=== PATIENT | male | born 1955 | race Asian ===

== ENCOUNTER 2016-09-08 16:10 | Inpatient (IN) | payer MEDICARE, OTHER ==
[~2016-09-08] VITALS: Ht 167.6 cm; Wt 63.5 kg
[2016-09-08 17:04] LABS: BASOPHILS % (AUTO) 0.7 % (0.0-2.0); EOSINOPHILS % (AUTO) 0.1 % (0.0-3.0); LYMPHOCYTES % (AUTO) 8.4 % (20.0-45.0); MEAN CORPUSCULAR HEMOGLOBIN 28.1 PG (27.0-31.0); MEAN CORPUSCULAR HGB CONC 34.5 G/DL (32.0-36.0); MEAN CORPUSCULAR VOLUME 82 FL (80-99); MEAN PLATELET VOLUME 7.4 FL (6.5-10.1); MONOCYTES % (AUTO) 8.8 % (1.0-10.0); PLATELET COUNT 164 K/UL (150-450); RED BLOOD COUNT 4.68 M/UL (4.70-6.10); RED CELL DISTRIBUTION WIDTH 16.6 % (11.6-14.8); WHITE BLOOD COUNT 11.9 K/UL (4.8-10.8)
[2016-09-08 17:23] LABS: ACETAMINOPHEN < 10 ug/mL (10-30); ALANINE AMINOTRANSFERASE 41 U/L (3-41); ALBUMIN/GLOBULIN RATIO 1.3 (1.0-2.7); ALCOHOL < 10 mg/dL; ANION GAP 17 (5-15); ASPARTATE AMINO TRANSFERASE 60 U/L (5-40); CALCIUM 8.7 mg/dL (8.6-10.2); CARBON DIOXIDE 25 mEQ/L (20-30); CHLORIDE 96 mEQ/L (98-107); GLOMERULAR FILTRATION RATE > 60 mL/min (>60); HEMOLYSIS 4; POTASSIUM 4.3 mEQ/L (3.4-4.9); SODIUM 138 mEQ/L (135-145)
[2016-09-08 17:34] LABS: THYROID STIMULATING HORMONE 0.546 uIU/mL (0.300-4.500)
[2016-09-08] MEDS ORDERED: NKM (18:33)
--- NOTE | 2016-09-08 18:33 | Emergency Room Report ---
History of Present Illness General Chief Complaint: Generalized Weakness Source: EMS Present Illness HPI 61-year-old male brought to ED for evaluation. Per EMS patient lives at [facility] facility. Principal Law Clerk call 911 because patient is having frequent falls for the last few days. Witnessed fall with head injury. No reported LOC. Patient was taken to another hospital yesterday and was medically cleared and discharged. Patient had additional falls today. Patient has extensive psychiatric history. Patient is not able to give good history. Unsure if he lost consciousness. Denies chest pain or shortness of breath. Denies fevers or chills. Denies drug use. No other aggravating or relieving factors. Denies any other associated symptoms Allergies: Coded Allergies: No Known Allergies (Unverified , 09/08/16) Patient History Past Medical History: HTN, psych hx Pertinent Family History: none Social History: Denies: alcohol use, drug use, smoking Immunizations: UTD Reviewed Nursing Documentation: PMH: Agreed, PSxH: Agreed Nursing Documentation-PMH Past Medical History: No History, Except For Hx Hypertension: Yes History Of Psychiatric Problem: Yes - schizophrenia Review of Systems All Other Systems: negative except mentioned in HPI Physical Exam Vital Signs Date Time Temp Pulse Resp B/P Pulse Ox O2 Delivery O2 Flow Rate FiO2 09/08/16 16:08 99.7 96 18 120/74 97 Room Air Sp02 EP Interpretation: reviewed, normal General Appearance: no apparent distress, alert, GCS 15, non-toxic Head: normocephalic, atraumatic Eyes: bilateral eye PERRL, bilateral eye normal inspection ENT: hearing grossly normal, normal pharynx, no angioedema, normal voice Neck: full range of motion, supple/symm/no masses Respiratory: chest non-tender, lungs clear, normal breath sounds, speaking full sentences Cardiovascular #1: regular rate, rhythm, no edema Cardiovascular #2: 2+ carotid (R), 2+ carotid (L), 2+ radial (R), 2+ radial (L) , 2+ dorsalis pedis (R), 2+ dorsalis pedis (L) Gastrointestinal: normal bowel sounds, non tender, soft, non-distended, no guarding, no rebound Rectal: deferred Genitourinary: normal inspection, no CVA tenderness Musculoskeletal: back normal, gait/station normal, normal range of motion, non- tender Neurologic: alert, sensory intact, speech normal Psychiatric: other - psych Reflexes: 3+ bicep (R), 3+ bicep (L), 3+ tricep (R), 3+ tricep (L), 3+ knee (R) , 3+ knee (L) Skin: normal color, no rash, warm/dry, well hydrated Lymphatic: no adenopathy Medical Decision Making Diagnostic Impression: Primary Impression: Head injury Qualified Codes: S09.90XA - Unspecified injury of head, initial encounter Additional Impressions: Frequent falls Schizophrenia Qualified Codes: F20.9 - Schizophrenia, unspecified ER Course Hospital Course 61-year-old M presents ED s/p head injury. h/o frequent falls. h/o psych Differential diagnoses include: dehydration, CVA/TIA, ETOH Clinical course Patient placed on stretcher. on director software development. After initial history and physical I ordered labs, IVFs, CT Brain labs reviewed- no leukocytosis, hemoglobin/hematocrit ok, electrolytes okay, troponins negative, ETOH < 10 CT brain-unremarkable I discussed case with elementary substitute teacher in [facility] facility. She states that she is unable to care for the patient given that he has frequent falls. Patient will require admission Case discussed with Dr. Gutierrez and he agreed to accept the patient to his service for further care and support I. I feel this is a highly complex case requiring extensive working including EKG/Rhythm strip, Xray/CT/US, Blood/urine lab work, repeat exams while in ED, and administration of strong opiates/narcotics for pain control, admission to hospital or close patient follow up. Diagnosis - head injury, frequent falls, schizophrenia admitted to floor in serious condition Labs Test 09/08/16 16:43 White Blood Count 11.9 K/UL (4.8-10.8) Red Blood Count 4.68 M/UL (4.70-6.10) Hemoglobin 13.2 G/DL (14.2-18.0) Hematocrit 38.1 % (42.0-52.0) Mean Corpuscular Volume 82 FL (80-99) Mean Corpuscular Hemoglobin 28.1 PG (27.0-31.0) Mean Corpuscular Hemoglobin Concent 34.5 G/DL (32.0-36.0) Red Cell Distribution Width 16.6 % (11.6-14.8) Platelet Count 164 K/UL (150-450) Mean Platelet Volume 7.4 FL (6.5-10.1) Neutrophils (%) (Auto) 82.0 % (45.0-75.0) Lymphocytes (%) (Auto) 8.4 % (20.0-45.0) Monocytes (%) (Auto) 8.8 % (1.0-10.0) Eosinophils (%) (Auto) 0.1 % (0.0-3.0) Basophils (%) (Auto) 0.7 % (0.0-2.0) Sodium Level 138 mEQ/L (135-145) Potassium Level 4.3 mEQ/L (3.4-4.9) Chloride Level 96 mEQ/L (98-107) Carbon Dioxide Level 25 mEQ/L (20-30) Anion Gap 17 (5-15) Blood Urea Nitrogen 22 mg/dL (7-23) Creatinine 1.0 mg/dL (0.7-1.2) Estimat Glomerular Filtration Rate > 60 mL/min (>60) Glucose Level 136 mg/dL (74-106) Calcium Level 8.7 mg/dL (8.6-10.2) Total Bilirubin 0.9 mg/dL (0.0-1.2) Aspartate Amino Transf (AST/SGOT) 60 U/L (5-40) Alanine Aminotransferase (ALT/SGPT) 41 U/L (3-41) Alkaline Phosphatase 96 U/L (40-129) Total Protein 7.0 g/dL (6.6-8.7) Albumin 4.0 g/dL (3.5-5.2) Globulin 3.0 g/dL Albumin/Globulin Ratio 1.3 (1.0-2.7) Thyroid Stimulating Hormone (TSH) 0.546 uIU/mL (0.300-4.500) Salicylates Level < 1 mg/dL (10-30) Acetaminophen Level < 10 ug/mL (10-30) Serum Alcohol < 10 mg/dL CT/MRI/US Diagnostic Results CT/MRI/US Diagnostic Results : Imaging Test Ordered: CT Head Impression no acute process Last Vital Signs Date Time Temp Pulse Resp B/P Pulse Ox O2 Delivery O2 Flow Rate FiO2 09/08/16 16:08 99.7 96 18 120/74 97 Room Air Status: unchanged Disposition: HOME, SELF-CARE Condition: Stable Patient Instructions: Head Injury, Adult, [id number] VIRIDIANA SANCHEZ M.D. Sep 08, 2016 18:33
[2016-09-08] MEDS ORDERED: Morphine Sulfate 2mg/ml Inj IVP PRN (18:45)
[2016-09-08] MEDS ORDERED: LORazepam Inj 2mg/ml 1ml IV PRN (18:45)
[2016-09-08] MEDS ORDERED: Mylanta II UD 30ml ORAL PRN (18:45)
[2016-09-08 18:51] VITALS: BP 120/86
[2016-09-08 20:51] VITALS: BP 123/81
[2016-09-08] MEDS ORDERED: Zolpidem 5mg tab ORAL PRN (21:00)
[2016-09-08] MEDS ORDERED: Miralax 17gm pkt ORAL PRN (21:00)
[2016-09-08 22:11] VITALS: BP 143/79
[2016-09-09 04:23] VITALS: BP 137/86
[2016-09-09 07:15] LABS: ALANINE AMINOTRANSFERASE 36 U/L (3-41); ALBUMIN/GLOBULIN RATIO 1.1 (1.0-2.7); ANION GAP 14 (5-15); ASPARTATE AMINO TRANSFERASE 48 U/L (5-40); CALCIUM 8.6 mg/dL (8.6-10.2); CARBON DIOXIDE 24 mEQ/L (20-30); CHLORIDE 103 mEQ/L (98-107); CHOLESTEROL 149 mg/dL (< 200); CHOLESTEROL/HDL RATIO 3.5 (3.3-4.4); CREATININE 0.9 mg/dL (0.7-1.2); GLOMERULAR FILTRATION RATE > 60 mL/min (>60); HEMOLYSIS 1; LDL CHOLESTEROL (CALC.) 90 mg/dL (60-99); POTASSIUM 3.8 mEQ/L (3.4-4.9); SODIUM 141 mEQ/L (135-145); TOTAL PROTEIN 6.7 g/dL (6.6-8.7)
[2016-09-09 07:20] LABS: BASOPHILS % (AUTO) 0.7 % (0.0-2.0); EOSINOPHILS % (AUTO) 0.3 % (0.0-3.0); LYMPHOCYTES % (AUTO) 9.2 % (20.0-45.0); MEAN CORPUSCULAR HEMOGLOBIN 25.4 PG (27.0-31.0); MEAN CORPUSCULAR HGB CONC 31.5 G/DL (32.0-36.0); MEAN CORPUSCULAR VOLUME 81 FL (80-99); MEAN PLATELET VOLUME 7.2 FL (6.5-10.1); MONOCYTES % (AUTO) 8.5 % (1.0-10.0); NEUTROPHILS % (AUTO) 81.3 % (45.0-75.0); PLATELET COUNT 168 K/UL (150-450); RED BLOOD COUNT 5.06 M/UL (4.70-6.10); RED CELL DISTRIBUTION WIDTH 17.2 % (11.6-14.8); WHITE BLOOD COUNT 11.1 K/UL (4.8-10.8)
[2016-09-09 07:28] LABS: THYROID STIMULATING HORMONE 0.335 uIU/mL (0.300-4.500)
[2016-09-09 08:22] VITALS: BP 131/83
[2016-09-09 11:46] VITALS: BP 138/84
--- NOTE | 2016-09-09 14:22 | Diagnostic Imaging Report ---
Indications: Head trauma, status post fall Technique: Spiral acquisitions obtained through the brain. Angled axial and coronal 5 x 5 mm slices were reconstructed. Total dose length product 1460 mGycm. CTDI vol(s) 70 mGy. Dose reduction achieved using automated exposure control Comparison: None Findings: No significant extra cranial soft tissue trauma. No evidence of calvarial injury. No acute intracranial bleed or edema, mass effect, or midline shift. Old lacunar infarcts are seen in the bilateral frontal deep white matter. There is minimal age-related enlargement of the ventricles and extra-axial CSF spaces. Normal roblero-white differentiation. There is include disease involving the maxillary and ethmoid sinuses, and evidence of chronic periosteal thickening of the maxillary sinuses. Impression: Negative for acute intracranial bleed or mass effect Old bilateral frontal deep white matter lacunar infarcts Minimal age-related volume loss Sinus disease This agrees with the preliminary interpretation provided overnight by Dr. Mcneil The CT scanner at [facility] is accredited by the [employer] and the scans are performed using protocols designed to limit radiation exposure to as low as reasonably achievable to attain images of sufficient resolution adequate for diagnostic evaluation.
[2016-09-09] MEDS ORDERED: Promethazine/Codeine 5ml UD ORAL PRN (15:45)
--- NOTE | 2016-09-09 15:58 | Consultation ---
History of Present Illness General Date patient seen: Sep 09, 2016 Chief Complaint: Generalized Weakness Referring physician: dr Gutierrez Reason for Consultation: cough Present Illness HPI 61-year-old male with hx of schizophrenia, CAD, brought to ED for evaluation of frequent falls for the last few days. Patient is not able to give good history. He is admitted last night, sleeping most of the time and just started to have cough and low grade fever. Allergies: Coded Allergies: No Known Allergies (Unverified , 09/08/16) Medication History Scheduled No Known Medications* (NKM - No Known Medications*), 0 ., (Reported) Patient History Healthcare decision maker Resuscitation status Full Code Advanced Directive on File Past Medical/Surgical History Past Medical/Surgical History: (1) Schizophrenia Review of Systems All Other Systems: negative except mentioned in HPI Physical Exam General Appearance: WD/WN, no apparent distress Lines, tubes and drains: peripheral HEENT: normocephalic, atraumatic Neck: non-tender, normal alignment Respiratory/Chest: chest wall non-tender, lungs clear Cardiovascular/Chest: normal peripheral pulses Abdomen: normal bowel sounds, non tender Genitourinary/Rectal: normal genital exam Extremities: normal range of motion Last 24 Hour Vital Signs Date Time Temp Pulse Resp B/P Pulse Ox O2 Delivery O2 Flow Rate FiO2 09/09/16 15:00 100.9 09/09/16 11:46 99.9 110 20 138/84 95 Room Air 110 09/09/16 08:22 97.9 85 19 131/83 95 85 09/09/16 04:23 97.5 103 20 137/86 90 Room Air 09/08/16 22:11 98.2 92 20 143/79 93 Room Air 09/08/16 21:12 98.3 91 22 123/81 97 Room Air 09/08/16 20:51 98.3 91 22 123/81 97 Room Air 09/08/16 18:51 98.3 94 23 120/86 97 Room Air 09/08/16 16:08 99.7 96 18 120/74 97 Room Air Intake and Output 09/08/16 09/09/16 19:00 07:00 Intake Total 0 ml 120 ml Output Total 800 ml Balance 0 ml -680 ml Intake Oral 0 ml 120 ml Output Urine Total 800 ml # Voids 4 Laboratory Tests Test 09/08/16 16:43 09/09/16 04:45 White Blood Count 11.9 K/UL (4.8-10.8) H 11.1 K/UL (4.8-10.8) H Red Blood Count 4.68 M/UL (4.70-6.10) L 5.06 M/UL (4.70-6.10) Hemoglobin 13.2 G/DL (14.2-18.0) L 12.9 G/DL (14.2-18.0) L Hematocrit 38.1 % (42.0-52.0) L 40.9 % (42.0-52.0) L Mean Corpuscular Volume 82 FL (80-99) 81 FL (80-99) Mean Corpuscular Hemoglobin 28.1 PG (27.0-31.0) 25.4 PG (27.0-31.0) L Mean Corpuscular Hemoglobin Concent 34.5 G/DL (32.0-36.0) 31.5 G/DL (32.0-36.0) L Red Cell Distribution Width 16.6 % (11.6-14.8) H 17.2 % (11.6-14.8) H Platelet Count 164 K/UL (150-450) 168 K/UL (150-450) Mean Platelet Volume 7.4 FL (6.5-10.1) 7.2 FL (6.5-10.1) Neutrophils (%) (Auto) 82.0 % (45.0-75.0) H 81.3 % (45.0-75.0) H Lymphocytes (%) (Auto) 8.4 % (20.0-45.0) L 9.2 % (20.0-45.0) L Monocytes (%) (Auto) 8.8 % (1.0-10.0) 8.5 % (1.0-10.0) Eosinophils (%) (Auto) 0.1 % (0.0-3.0) 0.3 % (0.0-3.0) Basophils (%) (Auto) 0.7 % (0.0-2.0) 0.7 % (0.0-2.0) Sodium Level 138 mEQ/L (135-145) 141 mEQ/L (135-145) Potassium Level 4.3 mEQ/L (3.4-4.9) 3.8 mEQ/L (3.4-4.9) Chloride Level 96 mEQ/L (98-107) L 103 mEQ/L (98-107) Carbon Dioxide Level 25 mEQ/L (20-30) 24 mEQ/L (20-30) Anion Gap 17 (5-15) H 14 (5-15) Blood Urea Nitrogen 22 mg/dL (7-23) 16 mg/dL (7-23) Creatinine 1.0 mg/dL (0.7-1.2) 0.9 mg/dL (0.7-1.2) Estimat Glomerular Filtration Rate > 60 mL/min (>60) > 60 mL/min (>60) Glucose Level 136 mg/dL (74-106) H 122 mg/dL (74-106) H Calcium Level 8.7 mg/dL (8.6-10.2) 8.6 mg/dL (8.6-10.2) Total Bilirubin 0.9 mg/dL (0.0-1.2) 0.9 mg/dL (0.0-1.2) Aspartate Amino Transf (AST/SGOT) 60 U/L (5-40) H 48 U/L (5-40) H Alanine Aminotransferase (ALT/SGPT) 41 U/L (3-41) 36 U/L (3-41) Alkaline Phosphatase 96 U/L (40-129) 91 U/L (40-129) Total Protein 7.0 g/dL (6.6-8.7) 6.7 g/dL (6.6-8.7) Albumin 4.0 g/dL (3.5-5.2) 3.6 g/dL (3.5-5.2) Globulin 3.0 g/dL 3.1 g/dL Albumin/Globulin Ratio 1.3 (1.0-2.7) 1.1 (1.0-2.7) Thyroid Stimulating Hormone (TSH) 0.546 uIU/mL (0.300-4.500) 0.335 uIU/mL (0.300-4.500) Salicylates Level < 1 mg/dL (10-30) L Acetaminophen Level < 10 ug/mL (10-30) L Serum Alcohol < 10 mg/dL Triglycerides Level 86 mg/dL (< 150) Cholesterol Level 149 mg/dL (< 200) LDL Cholesterol 90 mg/dL (60-99) HDL Cholesterol 42 mg/dL (> 60) Cholesterol/HDL Ratio 3.5 (3.3-4.4) Height (Feet): 5 Height (Inches): 6.00 Weight (Pounds): 140 Medications Current Medications Medications (Trade) Dose Ordered Sig/Madhuri Route PRN Reason Start Time Stop Time Status Last Admin Dose Admin Acetaminophen (Tylenol) 650 mg Q4H PRN ORAL T>100.5 09/08/16 18:45 10/08/16 18:44 Al Hydroxide/Mg Hydroxide (Mylanta II) 30 ml Q6H PRN ORAL dyspepsia 09/08/16 18:45 10/08/16 18:44 Dextrose (Dextrose 50%) STAT PRN IV Hypoglycemia 09/08/16 18:45 10/08/16 18:44 Levofloxacin (Levaquin) 100 ml @ 100 mls/hr Q24H IVPB 09/09/16 17:00 09/16/16 16:59 Lorazepam (Ativan 2mg/ml 1ml) 0.5 mg Q4H PRN IV For Anxiety 09/08/16 18:45 09/15/16 18:44 Morphine Sulfate (Morphine Sulfate) 1 mg Q4H PRN IVP PAIN 4-10 09/08/16 18:45 09/15/16 18:44 Ondansetron HCl (Zofran) 4 mg Q6H PRN IVP Nausea & Vomiting 09/08/16 18:45 10/08/16 18:44 Polyethylene Glycol (Miralax) 17 gm HSPRN PRN ORAL Constipation 09/08/16 21:00 10/08/16 20:59 Promethazine HCl/ Codeine 5 ml 5 ml Q4H PRN ORAL For Cough 09/09/16 15:45 10/09/16 15:44 Zolpidem Tartrate (Ambien) 5 mg HSPRN PRN ORAL Insomnia 09/08/16 21:00 10/08/16 20:59 Assessment/Plan Problem List: (1) Purulent bronchitis ICD Codes: J41.1 - Mucopurulent chronic bronchitis SNOMED: 11709553 (2) Fever ICD Codes: R50.9 - Fever, unspecified SNOMED: 061680439 (3) Acute encephalopathy ICD Codes: G93.40 - Encephalopathy, unspecified SNOMED: 4150515 (4) Schizoaffective disorder ICD Codes: F25.9 - Schizoaffective disorder, unspecified SNOMED: 66683295 Assessment/Plan check sputum IV antibiotics psych evaluation dvt prophylaxis CROW NOLAN Sep 09, 2016 15:58
[2016-09-09 16:00] VITALS: BP 137/76
--- NOTE | 2016-09-09 17:18 | Diagnostic Imaging Report ---
Indication: COUGH Technique: One view of the chest Comparison: none Findings: There is bilateral perihilar interstitial prominence and bronchial wall thickening, likely on the basis of chronic bronchitis changes. No focal airspace consolidation. No effusions. Normal heart size. Tortuous calcified aorta. Gas-filled borderline distended colon is noted Impression: Probable bronchitis/COPD changes No definite acute process Prominent gas-filled colon-correlate with clinical findings
--- NOTE | 2016-09-09 17:48 | History & Physical ---
History and Physical History & Physicial Dictated for Internal Med-Dr Gutierrez no. [id number]. ANNE JENNINGS Sep 09, 2016 17:47
[2016-09-09 20:00] VITALS: BP 102/61
[2016-09-09] MEDS ORDERED: Tubing IV Secondary IV ONE (20:31)
[2016-09-09] MEDS ORDERED: NS 275ml ONE (20:31)
[2016-09-09] MEDS ORDERED: Tubing Blood Filter IV ONE (20:31)
[2016-09-09] MEDS ORDERED: DuoNeb 0.5-3(2.5)mg/3ml neb HHN PRN (22:00)
--- NOTE | 2016-09-09 22:08 | Consultation ---
DATE OF CONSULTATION: 09/09/2016 PSYCHIATRIC CONSULTATION: CONSULTING PHYSICIAN: Kae Mckeon M.D. ATTENDING PHYSICIAN: Mal Gutierrez M.D. REFERRING PHYSICIAN: Mal Gutierrez M.D. HISTORY OF PRESENT ILLNESS: This is a 61-year-old male with history of schizophrenia and CAD, who was admitted to the hospital due to frequent falls. During the evaluation, the patient denied any delusions, however he does endorse auditory hallucinations. He denies using drugs or alcohol, however he appears to be an alcoholic. His abdomen is dilated and his face is typical for an alcoholic individual. I have asked him several times with a Sami speaking nurse, whether he has been using drugs, he denied. His AST is 60 higher than which was 41. During the evaluation, he did not appear to have any withdrawal symptoms from alcohol and he did not appear to be anxious. PAST PSYCHIATRIC HISTORY: Diagnosed with schizoaffective disorder and has been treated with antipsychotics in the past. PAST MEDICAL HISTORY: Significant for bronchitis, head injury, and frequent falls. ALLERGIES: There is no known drug allergies. SUBSTANCE ABUSE HISTORY: He denies any illicit drug use or alcohol. Again, it seems like that he is a chronic alcoholic. PHYSICAL EXAMINATION: MENTAL STATUS EXAMINATION: The patient is alert and oriented x3. Mood is neutral. Affect is constricted. Congruent mood. Thought process is concrete. Thought content, no suicidal or homicidal ideations. Positive for auditory hallucination. Cognition is slightly impaired. Insight and judgment are impaired. ASSESSMENT: AXIS I Schizophrenia versus schizoaffective disorder, rule out alcohol dependence. AXIS II Deferred. AXIS III As above. AXIS IV Moderate. AXIS V GAF is 50. PLAN: 1. The patient is already on Ativan, which could be used for alcohol withdrawal, if the patient presented with any. 2. We will start the patient with folic acid and thiamine, in case, if he has been drinking. 3. We will start the patient also on risperidone 2 mg at bedtime. 4. We will continue to follow and readjust the medications. Kae Mckeon M.D. DR: Lisy JOB#: [id number] CC:
--- NOTE | 2016-09-09 22:48 | History and Physical Report ---
DATE OF ADMISSION: 09/09/2016 CHIEF COMPLAINT: The patient is a 61-year-old male, who presents with a chief complaint of head injury. HISTORY OF PRESENT ILLNESS: The patient is a resident of [facility]. Much of the history and physical is obtained from the patient's chart. The patient will not wake up for this interviewer. The patient apparently lives at a [facility]. According to the staff at [facility], the patient has had frequent falls recently. The patient had a witnessed fall, where he hit his head. The patient was transported to [facility]. An initial CT scan of the brain was within normal limits. The patient was admitted for closed head injury to rule out acute intracranial bleed. PAST MEDICAL HISTORY: Significant for: 1. Hypertension. 2. Schizophrenia. PAST SURGICAL HISTORY: The patient denies. CURRENT MEDICATIONS: Unable to assess secondary to the patient's mental status. None reported. ALLERGIES: No known drug allergies. SOCIAL HISTORY: The patient lives at a [facility]. The patient denies tobacco or alcohol use. REVIEW OF SYSTEMS: Unable to assess secondary to the patient's mental status. PHYSICAL EXAMINATION: VITAL SIGNS: Temperature is 97.5 degrees, respirations 20, pulse 103, and blood pressure 137/86. GENERAL: The patient is a thin appearing, male, in no apparent distress. HEENT: Eyes, pupils are equal and responsive to light and accommodation. Extraocular movements are intact. NECK: Supple. No lymphadenopathy. CHEST: Lungs are clear to auscultation bilaterally without wheezes or rales. CARDIOVASCULAR: Regular rate. S1 and S2. No murmurs, rubs, or gallops. ABDOMEN: Soft, nontender, and nondistended. Positive bowel sounds. No evidence of hepatosplenomegaly. Currently, no rebound or guarding. EXTREMITIES: Negative for clubbing, cyanosis, or edema. RECTAL: Refused. GENITALIA: Refused. NEUROLOGIC: Cranial nerves II through XII are grossly intact without focal deficits. Motor strength is 5/5 bilaterally. Deep tendon reflexes are 2+ plantar. LABORATORY STUDIES: WBC is 11.9, hemoglobin 13.2, hematocrit 38.1, and platelets 164,000. Sodium is 138, potassium 4.3, chloride 96, CO2 25, BUN 22, creatinine 1.0, and glucose 136. AST is slightly elevated at 60. Urine toxicology was reported as negative. DIAGNOSTIC DATA: A chest x-ray revealed interstitial prominence and bronchial wall thickening consistent with bronchitis and/or COPD changes. A CT scan of the brain failed to demonstrate acute intracranial bleed or mass effect. ASSESSMENT: This is a 61-year-old male: 1. Altered mental status. 2. Frequent falls. 3. Closed head injury. 4. Bronchitis. 5. Chronic obstructive pulmonary disease. 6. History of hypertension. 7. Schizophrenia. TREATMENT: 1. Closed head injury/altered mental status. A Neurology consultation with be obtained with Dr. Eddy. Initial CAT scan was within normal limits. We will follow recommendation of Dr. Medina. 2. Frequent falls. 3. Bronchitis/chronic obstructive pulmonary disease. A Pulmonary consultation has been obtained with Dr. Taran Fermin. The patient is currently on intravenous Levaquin. We will follow recommendations of Pulmonary. 4. Hypertension. The patient is currently normotensive. 5. Schizophrenic. Psychiatric consultation will be obtained with Dr. Mckoen. We will follow recommendation of Dr. Mckeon. Kings Mcclelland M.D. DR: Jese JOB#: [id number] CC:
[2016-09-10 00:07] VITALS: BP 121/70
[2016-09-10 04:23] VITALS: BP 132/91
[2016-09-10 06:35] LABS: BASOPHILS % (AUTO) 0.4 % (0.0-2.0); EOSINOPHILS % (AUTO) 0.7 % (0.0-3.0); LYMPHOCYTES % (AUTO) 10.3 % (20.0-45.0); MEAN CORPUSCULAR HEMOGLOBIN 25.2 PG (27.0-31.0); MEAN CORPUSCULAR HGB CONC 31.5 G/DL (32.0-36.0); MEAN CORPUSCULAR VOLUME 80 FL (80-99); MEAN PLATELET VOLUME 8.1 FL (6.5-10.1); MONOCYTES % (AUTO) 7.9 % (1.0-10.0); NEUTROPHILS % (AUTO) 80.7 % (45.0-75.0); PLATELET COUNT 173 K/UL (150-450); RED BLOOD COUNT 4.97 M/UL (4.70-6.10); RED CELL DISTRIBUTION WIDTH 16.4 % (11.6-14.8); WHITE BLOOD COUNT 11.1 K/UL (4.8-10.8)
[2016-09-10 06:42] LABS: ANION GAP 9 (5-15); CALCIUM 8.2 mg/dL (8.6-10.2); CARBON DIOXIDE 27 mEQ/L (20-30); CHLORIDE 101 mEQ/L (98-107); CREATININE 0.8 mg/dL (0.7-1.2); GLOMERULAR FILTRATION RATE > 60 mL/min (>60); HEMOLYSIS 21; POTASSIUM 3.4 mEQ/L (3.4-4.9); SODIUM 137 mEQ/L (135-145)
[2016-09-10 08:04] VITALS: BP 117/66
[2016-09-10] MEDS: Thiamine 100mg tab ORAL SCH (08:18)
--- NOTE | 2016-09-10 08:37 | Pulmonology Progress Note ---
Assessment/Plan Assessment/Plan ASSESSMENT acute encephalopathy on chronic psychiatric disorder recurrent falls closed head injury purulent bronchitis COPD active smoker L hip pain hyperglycemia hx of CVA hx of HTN schizophrenia vs schizoaffective disorder PLAN OF CARE MS floor CT head negative for acute intracranial pathology but c/w old lacunar infarcts lipid panel WNL add ASA tox screen negative get UA O2 HHN prn empiric abx sputum cx antitussive prn CXR c/w COPD/bronchitis add Nicotine patch, investment counselor on smoking cessation swallow eval Venous Duplex BLE negative DVT prophylaxis X ray L hip pain management noted hyperglycemia, no known hx of DM, check HgA1c in am psych eval appreciated, psych meds optimized as per psychiatrist case discussed and evaluated by supervising physician Subjective Allergies: Coded Allergies: No Known Allergies (Unverified , 09/08/16) Subjective still with mild leukocytosis, afebrile pulse oximetry stable on RA seen and evaluated by psych, c/o pain L hip after fall but able to ambulate with assistance to the bathroom denies dizziness, headache, change in vision Objective Last 24 Hour Vital Signs Date Time Temp Pulse Resp B/P Pulse Ox O2 Delivery O2 Flow Rate FiO2 09/10/16 08:04 98.3 99 21 117/66 95 Room Air 99 09/10/16 07:26 Room Air 09/10/16 07:26 Room Air 09/10/16 04:23 98.2 97 20 132/91 99 Room Air 09/10/16 03:30 Room Air 09/10/16 03:30 Room Air 09/10/16 00:07 97.0 102 20 121/70 95 Room Air 09/09/16 23:35 83 18 96 Room Air 09/09/16 23:35 83 18 95 Room Air 09/09/16 20:04 Room Air 09/09/16 20:04 Room Air 09/09/16 20:00 98.0 97 20 102/61 98 Room Air 09/09/16 16:52 99.0 09/09/16 16:00 99.5 101 19 137/76 93 09/09/16 15:00 100.9 09/09/16 11:46 99.9 110 20 138/84 95 Room Air 110 Intake and Output 09/09/16 09/10/16 19:00 07:00 Intake Total 460 ml Output Total 200 ml Balance 260 ml Intake Oral 360 ml IV Total 100 ml Output Urine Total 200 ml # Voids 2 2 General Appearance: no acute distress, other - Awake, alert, responsive, in NAD HEENT: normocephalic, atraumatic, anicteric, mucous membranes moist, other - forehead dry scab, no hematoma, no edema Respiratory/Chest: lungs clear - with moderate air entry , no respiratory distress, no accessory muscle use Cardiovascular: normal peripheral pulses, normal rate, regular rhythm, no JVD Abdomen: normal bowel sounds, soft, non tender, non distended Extremities: no cyanosis, no clubbing, no edema, pedal pulses normal, other - Left hip with bruise Neurologic/Psychiatric: abnormal gait, alert, responsive Musculoskeletal: normal muscle bulk Laboratory Tests 09/10/16 05:25: White Blood Count 11.1H, Red Blood Count 4.97, Hemoglobin 12.5L, Hematocrit 39.7L, Mean Corpuscular Volume 80, Mean Corpuscular Hemoglobin 25.2L, Mean Corpuscular Hemoglobin Concent 31.5L, Red Cell Distribution Width 16.4H, Platelet Count 173, Mean Platelet Volume 8.1, Neutrophils (%) (Auto) 80.7H, Lymphocytes (%) (Auto) 10.3L, Monocytes (%) (Auto) 7.9, Eosinophils (%) (Auto) 0.7, Basophils (%) (Auto) 0.4, Sodium Level 137, Potassium Level 3.4, Chloride Level 101, Carbon Dioxide Level 27, Anion Gap 9, Blood Urea Nitrogen 14, Creatinine 0.8, Estimat Glomerular Filtration Rate > 60, Glucose Level 236#H, Calcium Level 8.2L Current Medications Medications (Trade) Dose Ordered Sig/Madhuri Route PRN Reason Start Time Stop Time Status Last Admin Dose Admin Acetaminophen (Tylenol) 650 mg Q4H PRN ORAL T>100.5 09/08/16 18:45 10/08/16 18:44 09/09/16 15:53 Al Hydroxide/Mg Hydroxide (Mylanta II) 30 ml Q6H PRN ORAL dyspepsia 09/08/16 18:45 10/08/16 18:44 Albuterol/ Ipratropium (DuoNeb 0.5-3(2.5)mg/3ml) 3 ml Q4H PRN HHN Shortness of Breath 09/09/16 22:00 09/14/16 21:59 Dextrose (Dextrose 50%) STAT PRN IV Hypoglycemia 09/08/16 18:45 10/08/16 18:44 Folic Acid (Folate) 1 mg DAILY ORAL 09/10/16 09:00 10/10/16 08:59 09/10/16 08:18 Levofloxacin (Levaquin) 100 ml @ 100 mls/hr Q24H IVPB 09/09/16 17:00 09/16/16 16:59 09/09/16 17:24 Lorazepam (Ativan 2mg/ml 1ml) 0.5 mg Q4H PRN IV For Anxiety 09/08/16 18:45 09/15/16 18:44 Morphine Sulfate (Morphine Sulfate) 1 mg Q4H PRN IVP PAIN 4-09/08/16 18:45 09/15/16 18:44 Ondansetron HCl (Zofran) 4 mg Q6H PRN IVP Nausea & Vomiting 09/08/16 18:45 10/08/16 18:44 Polyethylene Glycol (Miralax) 17 gm HSPRN PRN ORAL Constipation 09/08/16 21:00 10/08/16 20:59 Promethazine HCl/ Codeine 5 ml 5 ml Q4H PRN ORAL For Cough 09/09/16 15:45 10/09/16 15:44 Risperidone (RisperDAL) 2 mg BEDTIME ORAL 09/09/16 21:00 10/09/16 20:59 09/09/16 21:02 Thiamine HCl (Vitamin B1) 100 mg DAILY ORAL 09/10/16 09:00 10/10/16 08:59 09/10/16 08:18 Zolpidem Tartrate (Ambien) 5 mg HSPRN PRN ORAL Insomnia 09/08/16 21:00 10/08/16 20:59 Otto PleitezHawa logan NP Sep 10, 2016 08:37
[2016-09-10] MEDS ORDERED: Tubing IV Secondary IV ONE (09:58)
[2016-09-10 10:35] LABS: APPEARANCE,URINE CLEAR; KETONES,URINE 1+ (NEGATIVE); LEUKOCYTE ESTERASE ,URINE NEGATIVE (NEGATIVE); NITRITE,URINE NEGATIVE (NEGATIVE); PH,URINE 6 (4.5-8.0); PROTEIN,URINE 1+ (NEGATIVE); UROBILINOGEN,URINE NORMAL MG/DL (0.0-1.0)
[2016-09-10 11:02] LABS: BACTERIA,URINE FEW /HPF; MUCUS,URINE OCCASIONAL /LPF (NONE/OCC); RBC,URINE 0-2 /HPF (0 - 0); SQUAMOUS EPITHELIAL CELL,UR OCCASIONAL /LPF (NONE/OCC); WBC,URINE 0-2 /HPF (0 - 0)
[2016-09-10 11:32] VITALS: BP 138/85
[2016-09-10] MEDS: Aspirin EC 81mg tab ORAL SCH (12:20)
--- NOTE | 2016-09-10 13:40 | Diagnostic Imaging Report ---
Indications: Abdominal pain Technique: Portable supine AP abdomen Findings: Comparison: None Mild diffuse gaseous distention of small bowel. Mild/moderate gaseous and fecal distention of colon to rectum. Scattered arterial mural calcifications. Small osteophytes lumbar spine. IMPRESSION: Findings compatible with constipation, diffuse ileus Aortosclerosis Mild degenerative spondylosis
--- NOTE | 2016-09-10 14:17 | Diagnostic Imaging Report ---
Indications: Fall, left arm injury and pain Technique: 2 views left arm. Findings: Comparison: None No fracture, dislocation, joint space widening , surrounding soft tissue swelling/foreign body/gas, or other acute changes are identified. IMPRESSION: No evidence of acute injury to left arm.
[2016-09-10 16:03] VITALS: BP 133/77
--- NOTE | 2016-09-10 18:12 | Internal Med Progress Note ---
Subjective Date of Service: Sep 10, 2016 Physician Name JenningsAnne Attending Physician Mal Gutierrez MD Current Medications Medications (Trade) Dose Ordered Sig/Madhuri Route PRN Reason Start Time Stop Time Status Last Admin Dose Admin Acetaminophen (Tylenol) 650 mg Q4H PRN ORAL T>100.5 09/08/16 18:45 10/08/16 18:44 09/09/16 15:53 Al Hydroxide/Mg Hydroxide (Mylanta II) 30 ml Q6H PRN ORAL dyspepsia 09/08/16 18:45 10/08/16 18:44 Albuterol/ Ipratropium (DuoNeb 0.5-3(2.5)mg/3ml) 3 ml Q4H PRN HHN Shortness of Breath 09/09/16 22:00 09/14/16 21:59 Aspirin (Ecotrin) 81 mg DAILY ORAL 09/10/16 12:00 10/10/16 11:59 09/10/16 12:20 Dextrose (Dextrose 50%) STAT PRN IV Hypoglycemia 09/08/16 18:45 10/08/16 18:44 Folic Acid (Folate) 1 mg DAILY ORAL 09/10/16 09:00 10/10/16 08:59 09/10/16 08:18 Levofloxacin (Levaquin) 100 ml @ 100 mls/hr Q24H IVPB 09/09/16 17:00 09/16/16 16:59 09/10/16 17:55 Lorazepam (Ativan 2mg/ml 1ml) 0.5 mg Q4H PRN IV For Anxiety 09/08/16 18:45 09/15/16 18:44 Morphine Sulfate (Morphine Sulfate) 1 mg Q4H PRN IVP PAIN 4-10 09/08/16 18:45 09/15/16 18:44 Nicotine (Nicoderm) 1 patch DAILY TDERMAL 09/10/16 12:00 10/10/16 11:59 09/10/16 12:20 Ondansetron HCl (Zofran) 4 mg Q6H PRN IVP Nausea & Vomiting 09/08/16 18:45 10/08/16 18:44 Polyethylene Glycol (Miralax) 17 gm HSPRN PRN ORAL Constipation 09/08/16 21:00 10/08/16 20:59 Promethazine HCl/ Codeine 5 ml 5 ml Q4H PRN ORAL For Cough 09/09/16 15:45 10/09/16 15:44 Risperidone (RisperDAL) 2 mg BEDTIME ORAL 09/09/16 21:00 10/09/16 20:59 09/09/16 21:02 Thiamine HCl (Vitamin B1) 100 mg DAILY ORAL 09/10/16 09:00 10/10/16 08:59 09/10/16 08:18 Zolpidem Tartrate (Ambien) 5 mg HSPRN PRN ORAL Insomnia 09/08/16 21:00 10/08/16 20:59 Allergies: Coded Allergies: No Known Allergies (Unverified , 09/08/16) ROS Limited/Unobtainable: Yes Subjective 61 YO M admitted with fall injury. Now closed head injury. Cover for Int [place]- Dr Gutierrez. Objective Last Vital Signs Date Time Temp Pulse Resp B/P Pulse Ox O2 Delivery O2 Flow Rate FiO2 09/10/16 16:03 97.4 96 20 133/77 96 Room Air 96 Laboratory Tests Test 09/10/16 05:25 09/10/16 10:15 White Blood Count 11.1 K/UL (4.8-10.8) H Red Blood Count 4.97 M/UL (4.70-6.10) Hemoglobin 12.5 G/DL (14.2-18.0) L Hematocrit 39.7 % (42.0-52.0) L Mean Corpuscular Volume 80 FL (80-99) Mean Corpuscular Hemoglobin 25.2 PG (27.0-31.0) L Mean Corpuscular Hemoglobin Concent 31.5 G/DL (32.0-36.0) L Red Cell Distribution Width 16.4 % (11.6-14.8) H Platelet Count 173 K/UL (150-450) Mean Platelet Volume 8.1 FL (6.5-10.1) Neutrophils (%) (Auto) 80.7 % (45.0-75.0) H Lymphocytes (%) (Auto) 10.3 % (20.0-45.0) L Monocytes (%) (Auto) 7.9 % (1.0-10.0) Eosinophils (%) (Auto) 0.7 % (0.0-3.0) Basophils (%) (Auto) 0.4 % (0.0-2.0) Sodium Level 137 mEQ/L (135-145) Potassium Level 3.4 mEQ/L (3.4-4.9) Chloride Level 101 mEQ/L (98-107) Carbon Dioxide Level 27 mEQ/L (20-30) Anion Gap 9 (5-15) Blood Urea Nitrogen 14 mg/dL (7-23) Creatinine 0.8 mg/dL (0.7-1.2) Estimat Glomerular Filtration Rate > 60 mL/min (>60) Glucose Level 236 mg/dL (74-106) #H Calcium Level 8.2 mg/dL (8.6-10.2) L Urine Color Pale yellow Urine Appearance Clear Urine pH 6 (4.5-8.0) Urine Specific [place] 1.015 (1.005-1.035) Urine Protein 1+ (NEGATIVE) H Urine Glucose (UA) 3+ (NEGATIVE) H Urine Ketones 1+ (NEGATIVE) H Urine Occult Blood Negative (NEGATIVE) Urine Nitrite Negative (NEGATIVE) Urine Bilirubin Negative (NEGATIVE) Urine Urobilinogen Normal MG/DL (0.0-1.0) Urine Leukocyte Esterase Negative (NEGATIVE) Urine RBC 0-2 /HPF (0 - 0) H Urine WBC 0-2 /HPF (0 - 0) Urine Squamous Epithelial Cells Occasional /LPF Urine Bacteria Few /HPF (NONE) Urine Mucus Occasional /LPF Intake and Output 09/09/16 09/10/16 19:00 07:00 Intake Total 460 ml Output Total 200 ml Balance 260 ml Intake Oral 360 ml IV Total 100 ml Output Urine Total 200 ml # Voids 2 2 Objective General: alert, cooperative, no distress, appears stated age Head: normocephalic, without obvious abnormality, atraumatic Eyes: conjunctivae/corneas clear. PERRL, EOM's intact Throat: lips, mucosa, and tongue normal. MMM Neck: supple, symmetrical, trachea midline, and no JVD Lungs: clear to auscultation bilaterally Heart: regular rate and rhythm, S1, S2 normal, no murmur, click, rub or gallop Abdomen: soft, non-tender, non-distended, bowel sounds normal; no masses or organomegaly Extremities: extremities normal, atraumatic, no cyanosis or edema Pulses: 2+ and symmetric Skin: skin color, texture, turgor normal; no rashes or lesions Neurologic: grossly normal, no focal deficits Assessment/Plan Problem List: (1) COPD (chronic obstructive pulmonary disease) Assessment & Plan: Cont duoneb per pulm. (2) HTN (hypertension) (3) Frequent falls (4) Head injury Assessment & Plan: CT brain = no acute dis (5) Purulent bronchitis Assessment & Plan: See pulmonary note. Cont levaquin (6) Schizophrenia Assessment & Plan: See psych note. Status: not improved ANNE JENNINGS Sep 10, 2016 18:12
[2016-09-10 20:00] VITALS: BP 138/89
[2016-09-11] VITALS: BP_SYST 131; BP_SYST 140; BP_DIAS 82; BP_DIAS 86
[2016-09-11 04:00] VITALS: BP 134/85
[2016-09-11 05:48] LABS: BASOPHILS % (AUTO) 0.6 % (0.0-2.0); EOSINOPHILS % (AUTO) 1.6 % (0.0-3.0); LYMPHOCYTES % (AUTO) 15.3 % (20.0-45.0); MEAN CORPUSCULAR HEMOGLOBIN 25.5 PG (27.0-31.0); MEAN CORPUSCULAR HGB CONC 31.9 G/DL (32.0-36.0); MEAN CORPUSCULAR VOLUME 80 FL (80-99); MEAN PLATELET VOLUME 7.3 FL (6.5-10.1); MONOCYTES % (AUTO) 9.3 % (1.0-10.0); NEUTROPHILS % (AUTO) 73.2 % (45.0-75.0); PLATELET COUNT 197 K/UL (150-450); RED BLOOD COUNT 4.99 M/UL (4.70-6.10); RED CELL DISTRIBUTION WIDTH 16.8 % (11.6-14.8); WHITE BLOOD COUNT 9.6 K/UL (4.8-10.8)
[2016-09-11 06:27] LABS: ANION GAP 13 (5-15); CALCIUM 8.4 mg/dL (8.6-10.2); CARBON DIOXIDE 26 mEQ/L (20-30); CHLORIDE 100 mEQ/L (98-107); CREATININE 0.8 mg/dL (0.7-1.2); GLOMERULAR FILTRATION RATE > 60 mL/min (>60); HEMOLYSIS 3; POTASSIUM 3.4 mEQ/L (3.4-4.9); SODIUM 139 mEQ/L (135-145)
[2016-09-11 08:09] VITALS: BP 131/78
[2016-09-11] MEDS: Aspirin EC 81mg tab ORAL SCH (08:09)
[2016-09-11] MEDS: Thiamine 100mg tab ORAL SCH (08:09)
--- NOTE | 2016-09-11 10:31 | Diagnostic Imaging Report ---
Indication: PAIN Technique: XRAY HIP 2V LEFT Comparison: None. Findings: The hip joint appears normal. There is a lucency through the tip of the greater trochanter. A small sclerotic density is noted in the proximal femoral shaft. The remainder the bones are unremarkable. Hip joint is normal. Impression: Linear lucency in the greater trochanter. The possibility of a greater trochanteric fracture cannot be excluded though this could represent an artifact. Further evaluation with CT suggested if clinically warranted. Small bone island in the femoral shaft.
[2016-09-11 11:01] VITALS: BP 140/83
--- NOTE | 2016-09-11 13:45 | Internal Med Progress Note ---
Subjective Date of Service: Sep 11, 2016 Physician Name Jennings,Anne Attending Physician Mal Gutierrez MD Current Medications Medications (Trade) Dose Ordered Sig/Madhuri Route PRN Reason Start Time Stop Time Status Last Admin Dose Admin Acetaminophen (Tylenol) 650 mg Q4H PRN ORAL Mild Pain/Temp > 100.5 09/11/16 13:30 10/11/16 13:29 Al Hydroxide/Mg Hydroxide (Mylanta II) 30 ml Q6H PRN ORAL dyspepsia 09/08/16 18:45 10/08/16 18:44 Albuterol/ Ipratropium (DuoNeb 0.5-3(2.5)mg/3ml) 3 ml Q4H PRN HHN Shortness of Breath 09/09/16 22:00 09/14/16 21:59 Aspirin (Ecotrin) 81 mg DAILY ORAL 09/10/16 12:00 10/10/16 11:59 09/11/16 08:09 Dextrose (Dextrose 50%) STAT PRN IV Hypoglycemia 09/08/16 18:45 10/08/16 18:44 Folic Acid (Folate) 1 mg DAILY ORAL 09/10/16 09:00 10/10/16 08:59 09/11/16 08:09 Levofloxacin (Levaquin) 100 ml @ 100 mls/hr Q24H IVPB 09/09/16 17:00 09/16/16 16:59 09/10/16 17:55 Lorazepam (Ativan 2mg/ml 1ml) 0.5 mg Q4H PRN IV For Anxiety 09/08/16 18:45 09/15/16 18:44 Morphine Sulfate (Morphine Sulfate) 1 mg Q4H PRN IVP PAIN 4-10 09/08/16 18:45 09/15/16 18:44 Nicotine (Nicoderm) 1 patch DAILY TDERMAL 09/10/16 12:00 10/10/16 11:59 09/11/16 08:10 Ondansetron HCl (Zofran) 4 mg Q6H PRN IVP Nausea & Vomiting 09/08/16 18:45 10/08/16 18:44 Polyethylene Glycol (Miralax) 17 gm HSPRN PRN ORAL Constipation 09/08/16 21:00 10/08/16 20:59 Promethazine HCl/ Codeine 5 ml 5 ml Q4H PRN ORAL For Cough 09/09/16 15:45 10/09/16 15:44 Risperidone (RisperDAL) 2 mg BEDTIME ORAL 09/09/16 21:00 10/09/16 20:59 09/10/16 21:07 Thiamine HCl (Vitamin B1) 100 mg DAILY ORAL 09/10/16 09:00 10/10/16 08:59 09/11/16 08:09 Zolpidem Tartrate (Ambien) 5 mg HSPRN PRN ORAL Insomnia 09/08/16 21:00 10/08/16 20:59 Allergies: Coded Allergies: No Known Allergies (Unverified , 09/08/16) ROS Limited/Unobtainable: Yes Subjective 61 YO M admitted with fall injury. Now bronchitis. Cover for Int Med-Dr Gutierrez. Objective Last Vital Signs Date Time Temp Pulse Resp B/P Pulse Ox O2 Delivery O2 Flow Rate FiO2 09/11/16 11:07 Room Air 09/11/16 11:01 97.9 106 16 140/83 94 Laboratory Tests Test 09/11/16 05:28 White Blood Count 9.6 K/UL (4.8-10.8) Red Blood Count 4.99 M/UL (4.70-6.10) Hemoglobin 12.7 G/DL (14.2-18.0) L Hematocrit 39.9 % (42.0-52.0) L Mean Corpuscular Volume 80 FL (80-99) Mean Corpuscular Hemoglobin 25.5 PG (27.0-31.0) L Mean Corpuscular Hemoglobin Concent 31.9 G/DL (32.0-36.0) L Red Cell Distribution Width 16.8 % (11.6-14.8) H Platelet Count 197 K/UL (150-450) Mean Platelet Volume 7.3 FL (6.5-10.1) Neutrophils (%) (Auto) 73.2 % (45.0-75.0) Lymphocytes (%) (Auto) 15.3 % (20.0-45.0) L Monocytes (%) (Auto) 9.3 % (1.0-10.0) Eosinophils (%) (Auto) 1.6 % (0.0-3.0) Basophils (%) (Auto) 0.6 % (0.0-2.0) Sodium Level 139 mEQ/L (135-145) Potassium Level 3.4 mEQ/L (3.4-4.9) Chloride Level 100 mEQ/L (98-107) Carbon Dioxide Level 26 mEQ/L (20-30) Anion Gap 13 (5-15) Blood Urea Nitrogen 14 mg/dL (7-23) Creatinine 0.8 mg/dL (0.7-1.2) Estimat Glomerular Filtration Rate > 60 mL/min (>60) Glucose Level 153 mg/dL (74-106) H Hemoglobin A1c 6.2 % (< 6.0) H Calcium Level 8.4 mg/dL (8.6-10.2) L Microbiology Date/Time Source Procedure Growth Status 09/10/16 00:00 Sputum Gram Stain - Final Resulted 09/10/16 00:00 Sputum Sputum Culture - Preliminary NORMAL UPPER RESPIRATORY [place]DE[place] AT 24 ... Resulted 09/08/16 18:30 Nasal Nares MRSA Culture - Final NO METHICILLIN RESISTANT STAPH AUREUS... Complete 09/08/16 18:30 Rectum VRE Culture - Final NO VANCOMYCIN RESISTANT ENTEROCOCCUS ... Complete Intake and Output 09/10/16 09/11/16 18:59 06:59 Intake Total 720 ml 480 ml Balance 720 ml 480 ml Intake Oral 720 ml 480 ml # Voids 1 3 # Bowel Movements 1 Objective General: alert, cooperative, no distress, appears stated age Head: normocephalic, without obvious abnormality, atraumatic Eyes: conjunctivae/corneas clear. PERRL, EOM's intact Throat: lips, mucosa, and tongue normal. MMM Neck: supple, symmetrical, trachea midline, and no JVD Lungs: clear to auscultation bilaterally Heart: regular rate and rhythm, S1, S2 normal, no murmur, click, rub or gallop Abdomen: soft, non-tender, non-distended, bowel sounds normal; no masses or organomegaly Extremities: extremities normal, atraumatic, no cyanosis or edema Pulses: 2+ and symmetric Skin: skin color, texture, turgor normal; no rashes or lesions Neurologic: grossly normal, no focal deficits Assessment/Plan Problem List: (1) COPD (chronic obstructive pulmonary disease) Assessment & Plan: Cont duoneb per pulm. (2) HTN (hypertension) (3) Frequent falls (4) Head injury Assessment & Plan: CT brain = no acute dis (5) Purulent bronchitis Assessment & Plan: See pulmonary note. Cont levaquin (6) Schizophrenia Assessment & Plan: See psych note. Status: progressing Assessment/Plan Discharge planning. ANNE JENNINGS Sep 11, 2016 13:45
--- NOTE | 2016-09-11 14:36 | Pulmonology Progress Note ---
Assessment/Plan Assessment/Plan ASSESSMENT acute encephalopathy on chronic psychiatric disorder recurrent falls closed head injury purulent bronchitis COPD active smoker L hip pain hyperglycemia hx of CVA hx of HTN schizophrenia vs schizoaffective disorder PLAN OF CARE MS floor CT head negative for acute intracranial pathology but c/w old lacunar infarcts lipid panel WNL added ASA tox screen negative get UA O2 HHN prn empiric abx sputum cx antitussive prn CXR c/w COPD/bronchitis added Nicotine patch, personnel counselor on smoking cessation swallow eval Venous Duplex BLE negative DVT prophylaxis X ray L hip with linear opacity at area of greater trochanter, recommended CT if clinically indicated get CT L hip PT/OT, pain management noted hyperglycemia, no known hx of DM, HgA1c -6.2 psych eval appreciated, psych meds optimized as per psychiatrist case discussed and evaluated by supervising physician Subjective Allergies: Coded Allergies: No Known Allergies (Unverified , 09/08/16) Subjective leukocytosis resolved , afebrile pulse oximetry stable on RA seen and evaluated by psych, denies dizziness, headache, change in vision Objective Last 24 Hour Vital Signs Date Time Temp Pulse Resp B/P Pulse Ox O2 Delivery O2 Flow Rate FiO2 09/11/16 11:07 Room Air 09/11/16 11:07 Room Air 09/11/16 11:01 97.9 106 16 140/83 94 Room Air 09/11/16 08:09 99.1 104 14 131/78 95 Room Air 09/11/16 07:17 Room Air 09/11/16 07:17 Room Air 09/11/16 04:00 98.2 91 18 134/85 96 Room Air 91 09/11/16 03:17 Room Air 09/11/16 03:17 Room Air 09/11/16 00:00 100.2 98 18 131/86 98 Room Air 98 09/10/16 22:43 Room Air 09/10/16 22:43 Room Air 09/10/16 20:00 98.4 99 18 138/89 96 Room Air 99 09/10/16 19:21 Room Air 09/10/16 19:21 Room Air 09/10/16 16:03 97.4 96 20 133/77 96 Room Air 96 09/10/16 14:45 Room Air 09/10/16 14:45 Room Air Intake and Output 09/10/16 09/11/16 18:59 06:59 Intake Total 720 ml 480 ml Balance 720 ml 480 ml Intake Oral 720 ml 480 ml # Voids 1 3 # Bowel Movements 1 Objective General Appearance: no acute distress, other - Awake, alert, responsive, in NAD HEENT: normocephalic, atraumatic, anicteric, mucous membranes moist, other - forehead dry scab, no hematoma, no edema Respiratory/Chest: lungs clear - with moderate air entry , no respiratory distress, no accessory muscle use Cardiovascular: normal peripheral pulses, normal rate, regular rhythm, no JVD Abdomen: normal bowel sounds, soft, non tender, non distended Extremities: no cyanosis, no clubbing, no edema, pedal pulses normal, Left hip with bruise Neurologic/Psychiatric: abnormal gait, alert, responsive Musculoskeletal: normal muscle bulk Microbiology Date/Time Source Procedure Growth Status 09/10/16 00:00 Sputum Gram Stain - Final Resulted 09/10/16 00:00 Sputum Sputum Culture - Preliminary NORMAL UPPER RESPIRATORY [place] AT 24 ... Resulted 09/08/16 18:30 Nasal Nares MRSA Culture - Final NO METHICILLIN RESISTANT STAPH AUREUS... Complete 09/08/16 18:30 Rectum VRE Culture - Final NO VANCOMYCIN RESISTANT ENTEROCOCCUS ... Complete Laboratory Tests 09/11/16 05:28: White Blood Count 9.6, Red Blood Count 4.99, Hemoglobin 12.7L, Hematocrit 39.9L , Mean Corpuscular Volume 80, Mean Corpuscular Hemoglobin 25.5L, Mean Corpuscular Hemoglobin Concent 31.9L, Red Cell Distribution Width 16.8H, Platelet Count 197, Mean Platelet Volume 7.3, Neutrophils (%) (Auto) 73.2, Lymphocytes (%) (Auto) 15.3L, Monocytes (%) (Auto) 9.3, Eosinophils (%) (Auto) 1.6, Basophils (%) (Auto) 0.6, Sodium Level 139, Potassium Level 3.4, Chloride Level 100, Carbon Dioxide Level 26, Anion Gap 13, Blood Urea Nitrogen 14, Creatinine 0.8, Estimat Glomerular Filtration Rate > 60, Glucose Level 153H, Hemoglobin A1c 6.2H, Calcium Level 8.4L Current Medications Medications (Trade) Dose Ordered Sig/Madhuri Route PRN Reason Start Time Stop Time Status Last Admin Dose Admin Acetaminophen (Tylenol) 650 mg Q4H PRN ORAL Mild Pain/Temp > 100.5 09/11/16 13:30 10/11/16 13:29 09/11/16 14:14 Al Hydroxide/Mg Hydroxide (Mylanta II) 30 ml Q6H PRN ORAL dyspepsia 09/08/16 18:45 10/08/16 18:44 Albuterol/ Ipratropium (DuoNeb 0.5-3(2.5)mg/3ml) 3 ml Q4H PRN HHN Shortness of Breath 09/09/16 22:00 09/14/16 21:59 Aspirin (Ecotrin) 81 mg DAILY ORAL 09/10/16 12:00 10/10/16 11:59 09/11/16 08:09 Dextrose (Dextrose 50%) STAT PRN IV Hypoglycemia 09/08/16 18:45 10/08/16 18:44 Folic Acid (Folate) 1 mg DAILY ORAL 09/10/16 09:00 10/10/16 08:59 09/11/16 08:09 Levofloxacin (Levaquin) 100 ml @ 100 mls/hr Q24H IVPB 09/09/16 17:00 09/16/16 16:59 09/10/16 17:55 Lorazepam (Ativan 2mg/ml 1ml) 0.5 mg Q4H PRN IV For Anxiety 09/08/16 18:45 09/15/16 18:44 Morphine Sulfate (Morphine Sulfate) 1 mg Q4H PRN IVP PAIN 4-10 09/08/16 18:45 09/15/16 18:44 Nicotine (Nicoderm) 1 patch DAILY TDERMAL 09/10/16 12:00 10/10/16 11:59 09/11/16 08:10 Ondansetron HCl (Zofran) 4 mg Q6H PRN IVP Nausea & Vomiting 09/08/16 18:45 10/08/16 18:44 Polyethylene Glycol (Miralax) 17 gm HSPRN PRN ORAL Constipation 09/08/16 21:00 10/08/16 20:59 Promethazine HCl/ Codeine 5 ml 5 ml Q4H PRN ORAL For Cough 09/09/16 15:45 10/09/16 15:44 Risperidone (RisperDAL) 2 mg BEDTIME ORAL 09/09/16 21:00 10/09/16 20:59 09/10/16 21:07 Thiamine HCl (Vitamin B1) 100 mg DAILY ORAL 09/10/16 09:00 10/10/16 08:59 09/11/16 08:09 Zolpidem Tartrate (Ambien) 5 mg HSPRN PRN ORAL Insomnia 09/08/16 21:00 10/08/16 20:59 Otto HellerMary [facility])Hawa NP Sep 11, 2016 14:36
[2016-09-11 15:29] VITALS: BP 153/100
[2016-09-11 20:06] VITALS: BP 145/86
[2016-09-12] VITALS (7 sets, daily range): BP systolic 132–154; BP diastolic 75–87
[2016-09-12 07:15] LABS: BASOPHILS % (AUTO) 0.9 % (0.0-2.0); LYMPHOCYTES % (AUTO) 15.3 % (20.0-45.0); MEAN CORPUSCULAR HEMOGLOBIN 25.7 PG (27.0-31.0); MEAN CORPUSCULAR HGB CONC 31.9 G/DL (32.0-36.0); MEAN CORPUSCULAR VOLUME 81 FL (80-99); MEAN PLATELET VOLUME 7.3 FL (6.5-10.1); MONOCYTES % (AUTO) 9.5 % (1.0-10.0); NEUTROPHILS % (AUTO) 72.3 % (45.0-75.0); PLATELET COUNT 238 K/UL (150-450); RED BLOOD COUNT 4.99 M/UL (4.70-6.10); RED CELL DISTRIBUTION WIDTH 16.5 % (11.6-14.8); WHITE BLOOD COUNT 8.4 K/UL (4.8-10.8)
[2016-09-12 07:36] LABS: ANION GAP 13 (5-15); CALCIUM 8.8 mg/dL (8.6-10.2); CARBON DIOXIDE 28 mEQ/L (20-30); CHLORIDE 97 mEQ/L (98-107); CREATININE 0.9 mg/dL (0.7-1.2); GLOMERULAR FILTRATION RATE > 60 mL/min (>60); HEMOLYSIS 6; POTASSIUM 3.8 mEQ/L (3.4-4.9); SODIUM 138 mEQ/L (135-145)
[2016-09-12] MEDS: Thiamine 100mg tab ORAL SCH (08:59)
[2016-09-12] MEDS: Aspirin EC 81mg tab ORAL SCH (08:59)
--- NOTE | 2016-09-12 09:13 | Diagnostic Imaging Report ---
Indication: PAIN Technique: CT scan of the pelvis and left hip performed without intravenous contrast material. Axial, coronal, and sagittal images were generated. Dose: Total Dose Length Product - DLP [address] Dose Index - CTDIvol(s) 9.88 mGy. Comparison: None Findings: There is an abdominal aortic aneurysm which is incompletely scanned. On the top slice of this study, the aneurysm measures 6.1 cm. Its actual size is uncertain. There is also marked dilatation of the ureters bilaterally. This study does not include the kidneys which are not evaluated. The lesion in the bladder. Mild degenerative changes noted in the sacroiliac joints. The bones are osteopenic. There is fracture of the greater trochanter of the left hip. No other fractures are identified. Impression: Fracture of the top of the greater trochanter of the left hip. Osteopenia. Abdominal aortic aneurysm, incompletely scan. The largest size of the aneurysms on the first slice measuring 6.1 cm. Its actual size is uncertain as it could be larger higher in the abdomen. Mild degenerative change in the sacroiliac joints. Marked dilatation of both ureters. Abnormal bladder with wall thickening and trabeculation.. The CT scanner at [facility] is accredited by the [employer] and the scans are performed using protocols designed to limit radiation exposure to as low as reasonably achievable to attain images of sufficient resolution adequate for diagnostic evaluation.
--- NOTE | 2016-09-12 10:38 | Pulmonology Progress Note ---
Assessment/Plan Assessment/Plan ASSESSMENT acute encephalopathy on chronic psychiatric disorder recurrent falls closed head injury purulent bronchitis COPD active smoker acute fracture of the greater trochanter of the left hip L hip pain hyperglycemia hx of CVA hx of HTN schizophrenia vs schizoaffective disorder PLAN OF CARE MS floor CT head negative for acute intracranial pathology but c/w old lacunar infarcts lipid panel WNL continue ASA tox screen negative O2 HHN prn empiric abx , dc abx sputum cx negative, UA negative antitussive prn CXR c/w COPD/bronchitis added Nicotine patch, preparole counseling aide on smoking cessation swallow eval Venous Duplex BLE negative DVT prophylaxis X ray L hip with linear opacity at area of greater trochanter, recommended CT if clinically indicated CT L hip with acute fracture of the greater trochanter of the left hip ortho eval as per MD pain management noted hyperglycemia, no known hx of DM, HgA1c -6.2 psych eval appreciated, psych meds optimized as per psychiatrist case discussed and evaluated by supervising physician Subjective Allergies: Coded Allergies: No Known Allergies (Unverified , 09/08/16) Subjective leukocytosis resolved , afebrile pulse oximetry stable on RA seen and evaluated by psych, denies dizziness, headache, change in vision CT left hip revealed acute fracture Objective Last 24 Hour Vital Signs Date Time Temp Pulse Resp B/P Pulse Ox O2 Delivery O2 Flow Rate FiO2 09/12/16 09:36 78 16 98 Room Air 21 09/12/16 09:36 79 16 98 Room Air 21 09/12/16 08:00 98.2 93 18 137/81 95 Room Air 09/12/16 04:00 97.2 88 18 138/75 95 Room Air 09/12/16 03:32 Room Air 09/12/16 03:32 Room Air 09/12/16 00:00 98.4 90 17 140/80 96 Room Air 09/11/16 23:01 Room Air 09/11/16 23:01 Room Air 09/11/16 21:14 98.6 09/11/16 20:06 98.6 87 19 145/86 98 Room Air 09/11/16 19:53 Room Air 09/11/16 19:53 Room Air 09/11/16 15:29 99.0 89 16 153/100 98 Room Air 09/11/16 15:10 Room Air 09/11/16 15:10 Room Air 09/11/16 11:07 Room Air 09/11/16 11:07 Room Air 09/11/16 11:01 97.9 106 16 140/83 94 Room Air Intake and Output 09/11/16 09/12/16 19:00 07:00 Intake Total 2600 ml 100 ml Balance 2600 ml 100 ml Intake Oral 2600 ml IV Total 100 ml # Voids 2 6 Objective General Appearance: no acute distress, other - Awake, alert, responsive, in NAD HEENT: normocephalic, atraumatic, anicteric, mucous membranes moist, other - forehead dry scab, no hematoma, no edema Respiratory/Chest: lungs clear - with moderate air entry , no respiratory distress, no accessory muscle use Cardiovascular: normal peripheral pulses, normal rate, regular rhythm, no JVD Abdomen: normal bowel sounds, soft, non tender, non distended Extremities: no cyanosis, no clubbing, no edema, pedal pulses normal, Left hip with bruise Neurologic/Psychiatric: abnormal gait, alert, responsive Musculoskeletal: normal muscle bulk Microbiology Date/Time Source Procedure Growth Status 09/10/16 00:00 Sputum Gram Stain - Final Complete 09/10/16 00:00 Sputum Sputum Culture - Final NORMAL UPPER RESPIRATORY MODESTO PRESENT Complete Laboratory Tests 09/12/16 06:25: White Blood Count 8.4, Red Blood Count 4.99, Hemoglobin 12.8L, Hematocrit 40.2L , Mean Corpuscular Volume 81, Mean Corpuscular Hemoglobin 25.7L, Mean Corpuscular Hemoglobin Concent 31.9L, Red Cell Distribution Width 16.5H, Platelet Count 238, Mean Platelet Volume 7.3, Neutrophils (%) (Auto) 72.3, Lymphocytes (%) (Auto) 15.3L, Monocytes (%) (Auto) 9.5, Eosinophils (%) (Auto) 2.0, Basophils (%) (Auto) 0.9, Sodium Level 138, Potassium Level 3.8, Chloride Level 97L, Carbon Dioxide Level 28, Anion Gap 13, Blood Urea Nitrogen 16, Creatinine 0.9, Estimat Glomerular Filtration Rate > 60, Glucose Level 146H, Calcium Level 8.8 Current Medications Medications (Trade) Dose Ordered Sig/Madhuri Route PRN Reason Start Time Stop Time Status Last Admin Dose Admin Acetaminophen (Tylenol) 650 mg Q4H PRN ORAL Mild Pain/Temp > 100.5 4/15/17 13:30 10/11/16 13:29 09/11/16 14:14 Al Hydroxide/Mg Hydroxide (Mylanta II) 30 ml Q6H PRN ORAL dyspepsia 09/08/16 18:45 10/08/16 18:44 Albuterol/ Ipratropium (DuoNeb 0.5-3(2.5)mg/3ml) 3 ml Q4H PRN HHN Shortness of Breath 09/09/16 22:00 09/14/16 21:59 Aspirin (Ecotrin) 81 mg DAILY ORAL 09/10/16 12:00 10/10/16 11:59 09/12/16 08:59 Dextrose (Dextrose 50%) STAT PRN IV Hypoglycemia 09/08/16 18:45 10/08/16 18:44 Folic Acid (Folate) 1 mg DAILY ORAL 09/10/16 09:00 10/10/16 08:59 09/12/16 08:59 Levofloxacin (Levaquin) 100 ml @ 100 mls/hr Q24H IVPB 09/09/16 17:00 09/16/16 16:59 09/11/16 18:25 Lorazepam (Ativan 2mg/ml 1ml) 0.5 mg Q4H PRN IV For Anxiety 09/08/16 18:45 09/15/16 18:44 Morphine Sulfate (Morphine Sulfate) 1 mg Q4H PRN IVP PAIN 4-10 09/08/16 18:45 09/15/16 18:44 09/11/16 20:44 Nicotine (Nicoderm) 1 patch DAILY TDERMAL 09/10/16 12:00 10/10/16 11:59 09/12/16 08:59 Ondansetron HCl (Zofran) 4 mg Q6H PRN IVP Nausea & Vomiting 09/08/16 18:45 10/08/16 18:44 Polyethylene Glycol (Miralax) 17 gm HSPRN PRN ORAL Constipation 09/08/16 21:00 10/08/16 20:59 Promethazine HCl/ Codeine 5 ml 5 ml Q4H PRN ORAL For Cough 09/09/16 15:45 10/09/16 15:44 Risperidone (RisperDAL) 2 mg BEDTIME ORAL 09/09/16 21:00 10/09/16 20:59 09/11/16 20:44 Thiamine HCl (Vitamin B1) 100 mg DAILY ORAL 09/10/16 09:00 10/10/16 08:59 09/12/16 08:59 Zolpidem Tartrate (Ambien) 5 mg HSPRN PRN ORAL Insomnia 09/08/16 21:00 10/08/16 20:59 Otto ([facility])Hawa NP Sep 12, 2016 10:38
--- NOTE | 2016-09-12 14:27 | Internal Med Progress Note ---
Subjective Date of Service: Sep 12, 2016 Physician Name Anne Mcclelland Attending Physician Mal Gutierrez MD Current Medications Medications (Trade) Dose Ordered Sig/Madhuri Route PRN Reason Start Time Stop Time Status Last Admin Dose Admin Acetaminophen (Tylenol) 650 mg Q4H PRN ORAL Mild Pain/Temp > 100.5 09/11/16 13:30 10/11/16 13:29 09/11/16 14:14 Al Hydroxide/Mg Hydroxide (Mylanta II) 30 ml Q6H PRN ORAL dyspepsia 09/08/16 18:45 10/08/16 18:44 Albuterol/ Ipratropium (DuoNeb 0.5-3(2.5)mg/3ml) 3 ml Q4H PRN HHN Shortness of Breath 09/09/16 22:00 09/14/16 21:59 Aspirin (Ecotrin) 81 mg DAILY ORAL 09/10/16 12:00 10/10/16 11:59 09/12/16 08:59 Dextrose (Dextrose 50%) STAT PRN IV Hypoglycemia 09/08/16 18:45 10/08/16 18:44 Folic Acid (Folate) 1 mg DAILY ORAL 09/10/16 09:00 10/10/16 08:59 09/12/16 08:59 Lorazepam (Ativan 2mg/ml 1ml) 0.5 mg Q4H PRN IV For Anxiety 09/08/16 18:45 09/15/16 18:44 Morphine Sulfate (Morphine Sulfate) 1 mg Q4H PRN IVP PAIN 4-10 09/08/16 18:45 09/15/16 18:44 09/11/16 20:44 Nicotine (Nicoderm) 1 patch DAILY TDERMAL 09/10/16 12:00 10/10/16 11:59 09/12/16 08:59 Ondansetron HCl (Zofran) 4 mg Q6H PRN IVP Nausea & Vomiting 09/08/16 18:45 10/08/16 18:44 Polyethylene Glycol (Miralax) 17 gm HSPRN PRN ORAL Constipation 09/08/16 21:00 10/08/16 20:59 Promethazine HCl/ Codeine (Phenergan with Codeine) 5 ml Q4H PRN ORAL For Cough 09/09/16 15:45 10/09/16 15:44 Risperidone (RisperDAL) 2 mg BEDTIME ORAL 09/09/16 21:00 10/09/16 20:59 09/11/16 20:44 Thiamine HCl (Vitamin B1) 100 mg DAILY ORAL 09/10/16 09:00 10/10/16 08:59 09/12/16 08:59 Zolpidem Tartrate (Ambien) 5 mg HSPRN PRN ORAL Insomnia 09/08/16 21:00 10/08/16 20:59 Allergies: Coded Allergies: No Known Allergies (Unverified , 09/08/16) ROS Limited/Unobtainable: No Constitutional: Reports: no symptoms HEENT: Reports: no symptoms Cardiovascular: Reports: no symptoms Respiratory: Reports: no symptoms Gastrointestinal/Abdominal: Reports: no symptoms Neurologic/Psychiatric: Reports: no symptoms Subjective 61 YO M admitted with fall injury. Now left greater trochanteric fracture. Cover for Int Med-Dr Gutierrez. Await ortho consult. Objective Last Vital Signs Date Time Temp Pulse Resp B/P Pulse Ox O2 Delivery O2 Flow Rate FiO2 09/12/16 12:00 97.8 94 18 134/78 95 Room Air 09/12/16 09:36 21 Laboratory Tests Test 09/12/16 06:25 White Blood Count 8.4 K/UL (4.8-10.8) Red Blood Count 4.99 M/UL (4.70-6.10) Hemoglobin 12.8 G/DL (14.2-18.0) L Hematocrit 40.2 % (42.0-52.0) L Mean Corpuscular Volume 81 FL (80-99) Mean Corpuscular Hemoglobin 25.7 PG (27.0-31.0) L Mean Corpuscular Hemoglobin Concent 31.9 G/DL (32.0-36.0) L Red Cell Distribution Width 16.5 % (11.6-14.8) H Platelet Count 238 K/UL (150-450) Mean Platelet Volume 7.3 FL (6.5-10.1) Neutrophils (%) (Auto) 72.3 % (45.0-75.0) Lymphocytes (%) (Auto) 15.3 % (20.0-45.0) L Monocytes (%) (Auto) 9.5 % (1.0-10.0) Eosinophils (%) (Auto) 2.0 % (0.0-3.0) Basophils (%) (Auto) 0.9 % (0.0-2.0) Sodium Level 138 mEQ/L (135-145) Potassium Level 3.8 mEQ/L (3.4-4.9) Chloride Level 97 mEQ/L (98-107) L Carbon Dioxide Level 28 mEQ/L (20-30) Anion Gap 13 (5-15) Blood Urea Nitrogen 16 mg/dL (7-23) Creatinine 0.9 mg/dL (0.7-1.2) Estimat Glomerular Filtration Rate > 60 mL/min (>60) Glucose Level 146 mg/dL (74-106) H Calcium Level 8.8 mg/dL (8.6-10.2) Microbiology Date/Time Source Procedure Growth Status 09/10/16 00:00 Sputum Gram Stain - Final Complete 09/10/16 00:00 Sputum Sputum Culture - Final NORMAL UPPER RESPIRATORY [place]ST[place] PRESENT Complete Intake and Output 09/11/16 09/12/16 19:00 07:00 Intake Total 2600 ml 100 ml Balance 2600 ml 100 ml Intake Oral 2600 ml IV Total 100 ml # Voids 2 6 Objective General: alert, cooperative, no distress, appears stated age Head: normocephalic, without obvious abnormality, atraumatic Eyes: conjunctivae/corneas clear. PERRL, EOM's intact Throat: lips, mucosa, and tongue normal. MMM Neck: supple, symmetrical, trachea midline, and no JVD Lungs: clear to auscultation bilaterally Heart: regular rate and rhythm, S1, S2 normal, no murmur, click, rub or gallop Abdomen: soft, non-tender, non-distended, bowel sounds normal; no masses or organomegaly Extremities: extremities normal, atraumatic, no cyanosis or edema Pulses: 2+ and symmetric Skin: skin color, texture, turgor normal; no rashes or lesions Neurologic: grossly normal, no focal deficits Assessment/Plan Problem List: (1) COPD (chronic obstructive pulmonary disease) Assessment & Plan: Cont duoneb per pulm. (2) HTN (hypertension) (3) Frequent falls (4) Head injury Assessment & Plan: CT brain = no acute dis (5) Purulent bronchitis Assessment & Plan: See pulmonary note. Cont levaquin (6) Schizophrenia Assessment & Plan: See psych note. (7) Greater trochanter fracture Assessment & Plan: Left. Await orhto consult-Dr Mayo Status: not improved ANNE MCCLELLAND Sep 12, 2016 14:27
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
[2016-09-13 04:00] VITALS: BP 160/95
[2016-09-13 07:47] VITALS: BP 132/76
[2016-09-13] MEDS: Aspirin EC 81mg tab ORAL SCH (09:03)
[2016-09-13] MEDS: Thiamine 100mg tab ORAL SCH (09:03)
--- NOTE | 2016-09-13 11:06 | Internal Med Progress Note ---
Subjective Date of Service: Sep 13, 2016 Physician Name Kings Mcclelland Attending Physician Mal Gutierrez MD Current Medications Medications (Trade) Dose Ordered Sig/Madhuri Route PRN Reason Start Time Stop Time Status Last Admin Dose Admin Acetaminophen (Tylenol) 650 mg Q4H PRN ORAL Mild Pain/Temp > 100.5 09/11/16 13:30 10/11/16 13:29 09/12/16 18:31 Al Hydroxide/Mg Hydroxide (Mylanta II) 30 ml Q6H PRN ORAL dyspepsia 09/08/16 18:45 10/08/16 18:44 Albuterol/ Ipratropium (DuoNeb 0.5-3(2.5)mg/3ml) 3 ml Q4H PRN HHN Shortness of Breath 09/09/16 22:00 09/14/16 21:59 Aspirin (Ecotrin) 81 mg DAILY ORAL 09/10/16 12:00 10/10/16 11:59 09/13/16 09:03 Dextrose (Dextrose 50%) STAT PRN IV Hypoglycemia 09/08/16 18:45 10/08/16 18:44 Folic Acid (Folate) 1 mg DAILY ORAL 09/10/16 09:00 10/10/16 08:59 09/13/16 09:03 Lorazepam (Ativan 2mg/ml 1ml) 0.5 mg Q4H PRN IV For Anxiety 09/08/16 18:45 09/15/16 18:44 Morphine Sulfate (Morphine Sulfate) 1 mg Q4H PRN IVP PAIN 4-10 09/08/16 18:45 09/15/16 18:44 09/11/16 20:44 Nicotine (Nicoderm) 1 patch DAILY TDERMAL 09/10/16 12:00 10/10/16 11:59 09/13/16 09:04 Ondansetron HCl (Zofran) 4 mg Q6H PRN IVP Nausea & Vomiting 09/08/16 18:45 10/08/16 18:44 Polyethylene Glycol (Miralax) 17 gm HSPRN PRN ORAL Constipation 09/08/16 21:00 10/08/16 20:59 Promethazine HCl/ Codeine (Phenergan with Codeine) 5 ml Q4H PRN ORAL For Cough 09/09/16 15:45 10/09/16 15:44 Risperidone (RisperDAL) 2 mg BEDTIME ORAL 09/09/16 21:00 10/09/16 20:59 09/12/16 20:24 Thiamine HCl (Vitamin B1) 100 mg DAILY ORAL 09/10/16 09:00 10/10/16 08:59 09/13/16 09:03 Zolpidem Tartrate (Ambien) 5 mg HSPRN PRN ORAL Insomnia 09/08/16 21:00 10/08/16 20:59 Allergies: Coded Allergies: No Known Allergies (Unverified , 09/08/16) ROS Limited/Unobtainable: Yes Subjective 61 YO M admitted with fall injury. Now left greater trochanteric fracture. Cover for Int Med-Dr Gutierrez. Objective Last Vital Signs Date Time Temp Pulse Resp B/P Pulse Ox O2 Delivery O2 Flow Rate FiO2 09/13/16 09:13 Room Air 09/13/16 07:47 97.2 90 19 132/76 96 09/12/16 16:21 21 Intake and Output 09/12/16 09/13/16 19:00 07:00 Intake Total 1000 ml 1500 ml Output Total 600 ml 2000 ml Balance 400 ml -500 ml Intake Oral 1000 ml 1500 ml Output Urine Total 600 ml 2000 ml # Voids 4 4 # Bowel Movements 1 Objective General: alert, cooperative, no distress, appears stated age Head: normocephalic, without obvious abnormality, atraumatic Eyes: conjunctivae/corneas clear. PERRL, EOM's intact Throat: lips, mucosa, and tongue normal. MMM Neck: supple, symmetrical, trachea midline, and no JVD Lungs: clear to auscultation bilaterally Heart: regular rate and rhythm, S1, S2 normal, no murmur, click, rub or gallop Abdomen: soft, non-tender, non-distended, bowel sounds normal; no masses or organomegaly Extremities: extremities normal, atraumatic, no cyanosis or edema Pulses: 2+ and symmetric Skin: skin color, texture, turgor normal; no rashes or lesions Neurologic: grossly normal, no focal deficits Assessment/Plan Problem List: (1) COPD (chronic obstructive pulmonary disease) Assessment & Plan: Cont duoneb per pulm. (2) HTN (hypertension) (3) Frequent falls (4) Head injury Assessment & Plan: CT brain = no acute dis (5) Purulent bronchitis Assessment & Plan: See pulmonary note. Cont levaquin (6) Schizophrenia Assessment & Plan: See psych note. (7) Greater trochanter fracture Assessment & Plan: Left. Non surgical; see orhto consult-Dr Mayo Status: progressing Assessment/Plan Discharge planning KINGS MCCLELLAND Sep 13, 2016 11:06
[2016-09-13 11:56] VITALS: BP 135/85
[2016-09-13 15:57] VITALS: BP 140/82
[2016-09-13 19:00] VITALS: BP 156/92
--- NOTE | 2016-09-13 22:09 | Pulmonology Progress Note ---
Assessment/Plan Problems: (1) Purulent bronchitis (2) Fever (3) Acute encephalopathy (4) Schizoaffective disorder Assessment/Plan improving respiratory treatment psych evaluation Subjective ROS Limited/Unobtainable: No Allergies: Coded Allergies: No Known Allergies (Unverified , 09/08/16) Objective Last 24 Hour Vital Signs Date Time Temp Pulse Resp B/P Pulse Ox O2 Delivery O2 Flow Rate FiO2 09/13/16 19:15 Room Air 09/13/16 19:15 Room Air 09/13/16 19:00 97.9 79 20 156/92 Room Air 09/13/16 16:25 88 18 97 Room Air 21 09/13/16 15:57 97.7 83 19 140/82 96 Room Air 09/13/16 11:56 97.6 71 19 135/85 97 Room Air 09/13/16 11:52 78 18 97 Room Air 09/13/16 10:42 73 18 96 Room Air 21 09/13/16 09:13 Room Air 09/13/16 07:47 97.2 90 19 132/76 96 Room Air 09/13/16 04:00 96.8 58 18 160/95 98 Room Air 09/13/16 02:53 Room Air 09/13/16 02:53 Room Air 09/12/16 23:53 98.1 72 18 151/80 98 Room Air 09/12/16 22:14 Room Air 09/12/16 22:14 Room Air Intake and Output 09/12/16 09/13/16 19:00 07:00 Intake Total 1000 ml 1500 ml Output Total 600 ml 2000 ml Balance 400 ml -500 ml Intake Oral 1000 ml 1500 ml Output Urine Total 600 ml 2000 ml # Voids 4 4 # Bowel Movements 1 Objective General Appearance: WD/WN, no apparent distress Lines, tubes and drains: peripheral HEENT: normocephalic, atraumatic Neck: non-tender, supple Respiratory/Chest: chest wall non-tender, rhonchi - bilaterally Cardiovascular/Chest: normal peripheral pulses, normal rate Abdomen: normal bowel sounds Genitourinary/Rectal: normal genital exam Extremities: normal range of motion Current Medications Medications (Trade) Dose Ordered Sig/Madhuri Route PRN Reason Start Time Stop Time Status Last Admin Dose Admin Acetaminophen (Tylenol) 650 mg Q4H PRN ORAL Mild Pain/Temp > 100.5 09/11/16 13:30 5/15/17 13:29 09/12/16 18:31 Al Hydroxide/Mg Hydroxide (Mylanta II) 30 ml Q6H PRN ORAL dyspepsia 09/08/16 18:45 10/08/16 18:44 Albuterol/ Ipratropium (DuoNeb 0.5-3(2.5)mg/3ml) 3 ml Q4H PRN HHN Shortness of Breath 09/09/16 22:00 09/14/16 21:59 Aspirin (Ecotrin) 81 mg DAILY ORAL 09/10/16 12:00 10/10/16 11:59 09/13/16 09:03 Dextrose (Dextrose 50%) STAT PRN IV Hypoglycemia 09/08/16 18:45 10/08/16 18:44 Folic Acid (Folate) 1 mg DAILY ORAL 09/10/16 09:00 10/10/16 08:59 09/13/16 09:03 Lorazepam (Ativan 2mg/ml 1ml) 0.5 mg Q4H PRN IV For Anxiety 09/08/16 18:45 09/15/16 18:44 Morphine Sulfate (Morphine Sulfate) 1 mg Q4H PRN IVP PAIN 4-10 09/08/16 18:45 09/15/16 18:44 09/11/16 20:44 Nicotine (Nicoderm) 1 patch DAILY TDERMAL 09/10/16 12:00 10/10/16 11:59 09/13/16 09:04 Ondansetron HCl (Zofran) 4 mg Q6H PRN IVP Nausea & Vomiting 09/08/16 18:45 10/08/16 18:44 Polyethylene Glycol (Miralax) 17 gm HSPRN PRN ORAL Constipation 09/08/16 21:00 10/08/16 20:59 Promethazine HCl/ Codeine (Phenergan with Codeine) 5 ml Q4H PRN ORAL For Cough 09/09/16 15:45 10/09/16 15:44 Risperidone (RisperDAL) 2 mg BEDTIME ORAL 09/09/16 21:00 10/09/16 20:59 09/13/16 21:00 Thiamine HCl (Vitamin B1) 100 mg DAILY ORAL 09/10/16 09:00 10/10/16 08:59 09/13/16 09:03 Zolpidem Tartrate (Ambien) 5 mg HSPRN PRN ORAL Insomnia 09/08/16 21:00 10/08/16 20:59 CROW NOLAN Sep 13, 2016 22:09
[2016-09-14] VITALS: BP 144/89
[2016-09-14 04:00] VITALS: BP 157/96
[2016-09-14 07:04] LABS: BASOPHILS % (AUTO) 0.6 % (0.0-2.0); EOSINOPHILS % (AUTO) 2.2 % (0.0-3.0); LYMPHOCYTES % (AUTO) 16.1 % (20.0-45.0); MEAN CORPUSCULAR HEMOGLOBIN 25.5 PG (27.0-31.0); MEAN CORPUSCULAR HGB CONC 31.5 G/DL (32.0-36.0); MEAN CORPUSCULAR VOLUME 81 FL (80-99); MEAN PLATELET VOLUME 6.8 FL (6.5-10.1); MONOCYTES % (AUTO) 8.3 % (1.0-10.0); NEUTROPHILS % (AUTO) 72.8 % (45.0-75.0); PLATELET COUNT 260 K/UL (150-450); RED BLOOD COUNT 4.85 M/UL (4.70-6.10); RED CELL DISTRIBUTION WIDTH 16.4 % (11.6-14.8); WHITE BLOOD COUNT 10.1 K/UL (4.8-10.8)
[2016-09-14 07:46] LABS: ANION GAP 9 (5-15); CALCIUM 9.1 mg/dL (8.6-10.2); CARBON DIOXIDE 31 mEQ/L (20-30); CHLORIDE 97 mEQ/L (98-107); CREATININE 0.8 mg/dL (0.7-1.2); GLOMERULAR FILTRATION RATE > 60 mL/min (>60); HEMOLYSIS 1; POTASSIUM 4.2 mEQ/L (3.4-4.9); SODIUM 137 mEQ/L (135-145)
[2016-09-14 07:53] VITALS: BP 147/82
[2016-09-14] MEDS: Aspirin EC 81mg tab ORAL SCH (08:23)
[2016-09-14] MEDS: Thiamine 100mg tab ORAL SCH (08:23)
[2016-09-14 11:42] VITALS: BP 147/89
[2016-09-14] MEDS ORDERED: TYLENOL650 MG/20. ORAL (13:18)
[2016-09-14] MEDS ORDERED: MYLANTA30 M1 ORAL (13:20)
[2016-09-14] MEDS ORDERED: ASPIRIN-LOW81 MG ORAL (13:26)
[2016-09-14] MEDS ORDERED: FOLIC ACID1 M1 PO (13:27)
[2016-09-14] MEDS ORDERED: ATIVAN0.5 MG ORAL (13:30)
[2016-09-14] MEDS ORDERED: NICODERM 21MG/241 EA TD (13:32)
[2016-09-14] MEDS ORDERED: ZOFRAN4 M3 ORAL (13:33)
[2016-09-14] MEDS ORDERED: MIRALAX17 G2 ORAL (13:34)
[2016-09-14] MEDS ORDERED: PROMETH-CODEIN 65 ML PO (13:35)
[2016-09-14] MEDS ORDERED: RISPERIDONE2 MG ORAL (13:36)
[2016-09-14] MEDS ORDERED: VITAMIN B-150 M1 PO (13:37)
[2016-09-14] MEDS ORDERED: AMBIEN5 MG ORAL (13:38)
[2016-09-14 16:00] VITALS: BP 128/87
--- NOTE | 2016-09-14 17:19 | Internal Med Progress Note ---
Subjective Date of Service: Sep 14, 2016 Physician Name Kings Mcclelland Attending Physician Mal Gutierrez MD Allergies: Coded Allergies: No Known Allergies (Unverified , 09/08/16) Subjective 61 YO M admitted with fall injury. Now left greater trochanteric fracture. Cover for Int Med-Dr Gutierrez. Await transfer to [facility] Objective Last Vital Signs Date Time Temp Pulse Resp B/P Pulse Ox O2 Delivery O2 Flow Rate FiO2 09/14/16 16:00 98.1 85 20 128/87 98 Room Air 09/14/16 11:55 21 Laboratory Tests Test 09/14/16 04:40 White Blood Count 10.1 K/UL (4.8-10.8) Red Blood Count 4.85 M/UL (4.70-6.10) Hemoglobin 12.4 G/DL (14.2-18.0) L Hematocrit 39.3 % (42.0-52.0) L Mean Corpuscular Volume 81 FL (80-99) Mean Corpuscular Hemoglobin 25.5 PG (27.0-31.0) L Mean Corpuscular Hemoglobin Concent 31.5 G/DL (32.0-36.0) L Red Cell Distribution Width 16.4 % (11.6-14.8) H Platelet Count 260 K/UL (150-450) Mean Platelet Volume 6.8 FL (6.5-10.1) Neutrophils (%) (Auto) 72.8 % (45.0-75.0) Lymphocytes (%) (Auto) 16.1 % (20.0-45.0) L Monocytes (%) (Auto) 8.3 % (1.0-10.0) Eosinophils (%) (Auto) 2.2 % (0.0-3.0) Basophils (%) (Auto) 0.6 % (0.0-2.0) Sodium Level 137 mEQ/L (135-145) Potassium Level 4.2 mEQ/L (3.4-4.9) Chloride Level 97 mEQ/L (98-107) L Carbon Dioxide Level 31 mEQ/L (20-30) H Anion Gap 9 (5-15) Blood Urea Nitrogen 14 mg/dL (7-23) Creatinine 0.8 mg/dL (0.7-1.2) Estimat Glomerular Filtration Rate > 60 mL/min (>60) Glucose Level 135 mg/dL (74-106) H Calcium Level 9.1 mg/dL (8.6-10.2) Intake and Output 09/13/16 09/14/16 19:00 07:00 Intake Total 900 ml 1600 ml Balance 900 ml 1600 ml Intake Oral 900 ml 1600 ml # Voids 5 5 Objective General: alert, cooperative, no distress, appears stated age Head: normocephalic, without obvious abnormality, atraumatic Eyes: conjunctivae/corneas clear. PERRL, EOM's intact Throat: lips, mucosa, and tongue normal. MMM Neck: supple, symmetrical, trachea midline, and no JVD Lungs: clear to auscultation bilaterally Heart: regular rate and rhythm, S1, S2 normal, no murmur, click, rub or gallop Abdomen: soft, non-tender, non-distended, bowel sounds normal; no masses or organomegaly Extremities: extremities normal, atraumatic, no cyanosis or edema Pulses: 2+ and symmetric Skin: skin color, texture, turgor normal; no rashes or lesions Neurologic: grossly normal, no focal deficits Assessment/Plan Problem List: (1) COPD (chronic obstructive pulmonary disease) Assessment & Plan: Cont duoneb per pulm. (2) HTN (hypertension) (3) Frequent falls (4) Head injury Assessment & Plan: CT brain = no acute dis (5) Purulent bronchitis Assessment & Plan: See pulmonary note. Cont levaquin (6) Schizophrenia Assessment & Plan: See psych note. (7) Greater trochanter fracture Assessment & Plan: Left. Non surgical; see orhto consult-Dr Mayo Assessment/Plan Discharge to [facility] group home [facility] today. KINGS MCCLELLAND Sep 14, 2016 17:19
--- NOTE | 2016-09-14 22:58 | Progress Note ---
SUBJECTIVE: The patient's mental condition is unchanged since previous encounter. The patient is compliant with medications. No behavior issues. MENTAL STATUS EXAMINATION: The patient is alert and oriented times self, place, and situation he is in. Mood is neutral. Affect is constricted. Congruent mood. Thought process is concrete. Thought content, no suicidal or homicidal ideation. Positive for paranoid ideation. Insight and judgment is impaired. ASSESSMENT: Schizophrenia and depression, rule out alcohol dependence. PLAN: 1. The patient will be continued on risperidone. The dosage will be increased to 4 mg at bedtime. 2. We will continue the thiamine and folic acid. 3. He is on p.r.n. benzodiazepine. Kae Mckeon M.D. DR: NADIR JOB#: [id number] CC:
--- NOTE | 2016-09-15 14:24 | Discharge Summary ---
Discharge Summary Hospital Course Date of Admission Sep 08, 2016 at 18:08 Date of Discharge Sep 14, 2016 at 17:10 Admitting Diagnosis UNSTEADY GAIT AND WEAKNESS HIMA Dsouza is a 61 year old male who was admitted on Sep 08, 2016 at 18:08 for Unsteady Gait And Weakness Hospital Course dc summary #[id number] Discharge Medications Continued Medications: Acetaminophen (Acetaminophen) 650 Mg/20.3 Ml Solution 650 MG ORAL Q6H PRN for Prn Headache/Temp > 101, ML 0 Refills Al Hydroxide/mg Hydroxide (Mag-Al Liquid) 30 Ml Oral.susp 30 ML ORAL EVERY 6 HOURS PRN for dyspepsia, ML Aspirin (Aspirin EC) 81 Mg Tablet.dr 81 MG ORAL DAILY, TAB Folic Acid (Folic Acid) 1 Mg Tablet 1 MG PO DAILY, TAB Lorazepam* (Ativan*) 0.5 Mg Tablet 0.5 MG ORAL PRN PRN for For Anxiety, TAB Nicotine (Nicotine Patch) 1 Each Patch.td24 1 EA TD DAILY, PATCH Polyethylene Glycol 3350* (Miralax*) 17 Gm Powd.pack 17 GM ORAL DAILY, PACKET Promethazine HCl/Codeine (Prometh-Codein 6.25-10 mg/5 ml) 5 Ml Syrup 5 ML PO for For Cough, ML Risperidone (Risperidone) 2 Mg Tablet 2 MG ORAL BEDTIME, TAB 0 Refills Thiamine Hcl (Vitamin B-1) 50 Mg Tablet 100 MG PO, TAB Zolpidem Tartrate* (Ambien*) 5 Mg Tablet 5 MG ORAL BEDTIME PRN for Insomnia, TAB Discharge Condition Upon Discharge: stable Discharge Disposition Patient was discharged to SNF/Subacute Facility(03) Discharge Diagnoses: Otto (Radha)Hawa NP Sep 15, 2016 14:24
--- NOTE | 2016-09-16 02:59 | Discharge Summary 2 SIG ---
DATE OF ADMISSION: 09/08/2016 DATE OF DISCHARGE: 09/14/2016 The patient is admitted under Dr. Gutierrez. REASON FOR ADMISSION: The patient is a 61-year-old male, brought to the emergency room for evaluation. [facility] Tannery Gummer called 911 because patient was having frequent falls for the last few days. He had a witnessed fall with head injury. No reported loss of consciousness. No blackout. No dizziness. The patient was taken to another hospital the day before coming to [facility] and was medically cleared and discharged. However, the patient had additional fall just prior to coming to [facility]. The patient is with extensive psychiatric history. The patient was not able to provide a good history. The patient was not sure if he lost consciousness. The patient denied chest pain or shortness of breath. The patient denied fever or chills. The patient denies drug use. Workup in the emergency room subsequently was done. The patient was placed on cardiac cath rn. The patient was started on the IV fluids. CT of the brain revealed no acute intracranial pathology. Troponin was negative. Alcohol level was less than 10. Hemoglobin and hematocrit were stable. No leukocytosis. Electrolytes were stable. The patient was admitted due to the head injury for further management. CT of the head read negative for acute intracranial bleeding or mass effect. Old bilateral frontal deep white matter lacunar infarct. ADMITTING DIAGNOSES: Includes, 1. Altered mental status. 2. Frequent falls. 3. Close head injury. 4. Bronchitis. 5. Chronic obstructive pulmonary disease. 6. History of hypertension. 7. Schizophrenia. HOSPITAL STAY: The patient was admitted to the hospital. Neurology consult was requested. Initial CAT scan was stable. Fall precaution implemented. A sitter at the bedside. The patient started to work with physical and occupational therapy. Pulmonology consult was requested. Per air brakes inspector supplemental oxygen and pulmonary toilet provided as needed. The patient had a purulent bronchitis. Empiric antibiotics provided. DVT prophylaxis provided. Sputum culture was negative. Swallow evaluation was done and revealed mild dysphagia. Diet was changed to soft easy to chew with thin liquid diet. Aspiration precaution with supervision, one-to-one feeding, and recommended video swallow evaluation. Lipid panel was checked was within normal limits. Toxicology screen was negative. Aspirin was added to existing regimen. Urinalysis was negative. As mentioned above, supplemental oxygen and pulmonary toilet provided as needed. The patient was on empiric antibiotics. Sputum culture was negative. Antitussive provided as needed. Chest x-ray was consistent with chronic obstructive pulmonary disease changes/bronchitis. Nicotine patch was added to existing regimen. The patient was counseled on smoking cessation. Venous duplex of bilateral lower extremity was negative. DVT prophylaxis provided. The patient complained of pain in the left hip after the fall. Left hip with the bruise and tender to palpation. Subsequently, a hip x-ray was done, which revealed a linear lucency in the greater trochanter. The possibility of the greater trochanteric fracture cannot be excluded. [employer] Specialist recommended to follow up with the hip CT. Subsequently, the patient undergone CT of the hip, which revealed fracture on the top of the greater trochanter of the left hip, but also noted aortic abdominal aneurysm incompletely scanned with the largest size of 6.1 cm. The patient is asymptomatic. No cardiac symptoms. No shortness of breath. Subsequently, orthopedic surgeon evaluation was requested. Dr. Mayo seen and evaluated the patient. The patient had right transverse greater trochanteric fracture. Fracture is nondisplaced, very transverse and it is likely to get extended to meet intertrochanteric area and femoral neck area. According to orthopedic surgeon, that was a stable fracture and it does not need a surgery. The patient can begin a physical therapy. He can be weightbearing as tolerated and can be worked on discharge planning once cleared by physical therapy. The patient started to work with physical and occupational therapy. At the same time, psychiatrist seen the patient. Psychiatrist optimized psychiatric medication regimen. The patient will continue on thiamine and folic acid as well as the patient was on risperidone, dose increased. Initially, noted that the patient has hyperglycemia, but no known history of diabetes. Hemoglobin A1c was checked and was 6.2. The patient does need every six months surveillance for aortic abdominal aneurysm. The patient was stable for transfer. DISCHARGE DIAGNOSES: Includes, 1. Acute encephalopathy on chronic psychiatric disorder. 2. Recurrent falls. 3. Closed head injury. 4. Purulent bronchitis. 5. Chronic obstructive pulmonary disease. 6. Active smoker. 7. Acute right transverse greater trochanteric fracture of the left hip. 8. Left hip pain. 9. History of cerebrovascular accident. 10. Schizophrenia versus schizoaffective disorder. 11. History of hypertension. DISCHARGE MEDICATIONS: See medication reconciliation list. DISCHARGE INSTRUCTIONS: The patient was discharged to home health with PT and OT. FOLLOWUP: Follow up with medical doctor at the facility. Mal Gutierrez M.D. I have been assigned to dictate discharge summary on this account and I was not involved in the patient's management. Haw[facility]arn[facility] centerGiovanna NNika DR: ZORA JOB#: [id number] CC:
--- NOTE | 2016-09-16 23:22 | Diagnostic Imaging Report ---
APPROVED REPORT CPT Code: 45046 Present Symptoms Comments: R/O DVT BILATERAL: Imaging reveals a patent deep venous system bilaterally. There is no evidence of thrombus within the femoral, popliteal or tibial segments. The greater saphenous veins are also within normal limits. Doppler indicates normal spontaneous flow within these segments.
== END 2016-09-14 17:10 | DRG 913 ==
LOC: EDBD 16:10 → EMR 17:26 → 4E 18:08 → EDBEDREQ 20:30 → 4E 21:12
DX: S09.8XXA Other specified injuries of head, initial encounter (principal); G93.40 Encephalopathy, unspecified; S72.114A Nondisplaced fracture of greater trochanter of right femur, initial encounter for closed fracture; S72.115A Nondisplaced fracture of greater trochanter of left femur, initial encounter for closed fracture; W19.XXXA Unspecified fall, initial encounter; Z91.81 History of falling; J44.9 Chronic obstructive pulmonary disease, unspecified; J41.1 Mucopurulent chronic bronchitis; F20.9 Schizophrenia, unspecified; F17.200 Nicotine dependence, unspecified, uncomplicated; R13.10 Dysphagia, unspecified; I71.4 Abdominal aortic aneurysm, without rupture; M25.552 Pain in left hip; Z86.73 Personal history of transient ischemic attack (TIA), and cerebral infarction without residual deficits; I25.10 Atherosclerotic heart disease of native coronary artery without angina pectoris; F25.9 Schizoaffective disorder, unspecified; I10 Essential (primary) hypertension
CPT/HCPCS: 36415; 70450; 71010; 73502; 74000; 80048; 80053; 80061; 80329; 81001; 83036; 84443; 85025; 87070; 87081; 87205; 93970